=== PATIENT | male | born 1960 | race Caucasian/White ===

== ENCOUNTER → 2025-03-03 | Outpatient (CLI) | payer SELFPAY, OTHER ==
--- NOTE | 2025-03-03 10:36 | EKG12_ITS ---
Test Reason : PREOP Blood Pressure : */* mmHG Vent. Rate : 62 BPM Atrial Rate : 62 BPM P-R Int : 142 ms QRS Dur : 92 ms QT Int : 382 ms P-R-T Axes : 48 18 61 degrees QTcB Int : 387 ms Normal sinus rhythm Normal ECG Confirmed by Elieser Camacho ([id number]), graphic editor JAS LAROSE ([id number]) on 03/04/2025 8:39:24 AM Referred By: Ashwin Mccormick Confirmed By: Elieser Camacho
[2025-03-03 11:51] LABS: Hematocrit 44.5 % (40-54); Hemoglobin 14.4 g/dL (13.0-16.5); Mean Corp Hgb Conc 32.4 g/dL (32-36); Mean Corpuscular Volume 92.1 fL (80-94); Mean Platelet Vol. 9.9 fl (6.2-12.0); Platelet Count 312 K/mm3 (150-450); RBC Distribution Width CV 12.6 % (11.6-14.6); RBC Distribution Width SD 42.8 fl (35.1-43.9); Red Blood Count 4.83 M/mm3 (4.6-6.2); White Blood Count 11.4 K/mm3 (4.4-11.0)
== END | disposition home or self-care (01) ==
PROVIDERS: PCP Family Medicine; Referring Provider Urology; Visit Provider Urology
DX: Z01.810 Encounter for preprocedural cardiovascular examination (principal)
CPT/HCPCS: 36415; 85027; 93005

== ENCOUNTER 2025-03-12 08:13 | Day surgery (SDC) | payer SELFPAY, OTHER ==
[2025-03-12] VITALS (14 sets, daily range): BP systolic 120–160; BP diastolic 80–98; PULSE 74–84; RESP 14–20; TEMP 36.3–37.1; O2SAT 94–98; BMI 23.4; BMI 23.5
--- OUTSIDE RECORDS SUMMARY | 2025-03-12 08:36 | XMS RPT_ITS | CCD ---
Author Organization [facility] Care Team Providers Care Hitcher Name Role Phone Parish Piedra MD Unavailable Parish Piedra MD Unavailable Shiraz OCONNOR, Dr. Abarca Unavailable Avni Walls MD Unavailable Helen PA-C, Romelai Rivera Unavailable Chrissie Ellis Unavailable Unavailable Danis BARBER OR BEAUTY SHOP MANAGER, Catalina Unavailable Unavailable FAMILY AND CONSUMER EDUCATION TEACHER-C, Stu Silva Unavailable Adalid BARBER OR BEAUTY SHOP MANAGER, Luis Unavailable Unavailable Juan Miguel PA-C, Yun Moody Unavailable Leonardo EVIDENCE TECHNICIAN, Saige Unavailable Unavailable Nat BARBER OR BEAUTY SHOP MANAGER, Naye Unavailable Unavailab lukas Caballero LPN, Gail Unavailable Unavailabl kyle Nicole LPN, Christina Church Unavailable Unavaila ble Unavailable Unavailable Rito HASTINGSN, Albertina Unavailable UnavailPARISH Bardales MD Primary Care Physician ARTUR HOBSON Admitting Unavailable ARTUR HOBSON Primary Care Unavailable ARTUR HOBSON Attending Unavailable PARISH PIEDRA Consulting Unavailable PROVIDER, UNKNOWN Consulting Unavailable PROVIDER, UNKNOWN Consulting Unavailable PROVIDER, UNKNOWN Consulting Unavailable ARTUR HOBSON Admitting Unavailable ARTUR HOBSON Primary Care Unavailable ARTUR HOBSON Attending Unavailable PARISH PIEDRA Consulting Unavailable PROVIDER, UNKNOWN Consulting Unavailable PROVIDER, UNKNOWN Consulting Unavailable PROVIDER, UNKNOWN Consulting Unavailable ANGELO ESCOBAR MD Admitting Unavailable ANGELO ESCOBAR MD Primary Care Unavailable ANGELO ESCOBAR MD Attending Unavailable PARISH PIEDRA Consulting Unavailable PROVIDER, UNKNOWN Consulting Unavailable PROVIDER, UNKNOWN Consulting Unavailable PROVIDER, UNKNOWN Consulting Unavailable PARISH PIEDRA MD Primary Care Unavailable PRICILA ESCALANTE MD Attending Unavail able LAURA OCONNOR PARISH Brtiton Primary Care Unavailable BORIS OCONNOR, PRICILA Attending Unavail keith ESCALANTE MD, PRICILA Attending Unavail able LAURA OCONNOR, PARISH Britton Primary Care Unavailable ANGELO ESCOBAR MD Attending Unavailable LAURA OCONNOR, PARISH Britton Primary Care Unavailable LAURA OCONNOR, PARISH Britton Primary Care Unavailable BORIS OCONNOR, PRICILA Attending Unavail keith PIEDRA MD, PARISH Britton Primary Care Unavailable BORIS OCONNOR, PRICILA Attending Unavail able ANGELO ESCOBAR MD Attending Unavailable LAURA OCONNOR, PARISH Britton Primary Care Unavailable Allergies Allergy Classification Reported Allergen(s) Allergy Type Date of Onset Reaction(s) Facility (20 sources) Augmentin *PENICILLINS* [facility], [facility]. Medications Current Medications Medication Drug Class(es) Dates Sig (Normalized) Sig (Original) fenofibrate 160 mg oral tablet (15 sources) Peroxisome Proliferator Receptor alpha Agonist Start: 04-01-2024 fenofibrate 160 mg tablet ; 1 (one) tablet qd for 0 days Quantity: 90 {Tablet} Refills: 3 Ordered: 01-Apr-2024 MD Parish Piedra Start: 01-Apr-2024 Fish Oils (4 sources) Start: 04-23-2024 Fish Oil 1000 mg oral capsule Dose : 1,000 mg = 1 cap(s), Oral, qDay, # 90 cap(s), 0 Refill(s) Start Date: 04/23/24 Status: Ordered Medication Dispense Status: Completed Quantity: 90.0 Unit: cap(s) Total Allowed Fills: 1 Fills Dispensed: 0 Start: 04-23-2024 Fish Oil 1000 mg oral capsule Dose : 1,000 mg = 1 cap(s), Oral, qDay, # 90 cap(s), 0 Refill(s) Start Date: 04/23/24 Status: Ordered Quantity: 90.0 Unit: cap(s) Repeat number: 1 fluconazole 150 mg oral tablet (15 sources) Azole Antifungal Start: 09-26-2023 fluconazole 1 50 mg tablet ; 1 (one) tablet q week x 4 weeks for 0 days Quantity: 4 {Tablet} Refills: 0 Ordered: 26-Sep-2023 MD Parish Piedra Start: 26-Sep-2023 Multi Vitamin Oral Tablet (20 sources) take 1 tablet by mouth once daily Multi Vitamin Oral Tablet ; 1 daily Bertha 3 1200 MG Oral Capsule (20 sources) take 2 capsules by mouth once daily Bertha 3 1200 MG Oral Capsule ; 2 daily (1200 MG) Completed/Discontinued Medications Medication Drug Class(es) Dates Sig (Normalized) Sig (Original) acetaminophen 325 mg / HYDROcodone bitartrate 5 mg oral tablet (20 sources) Opioid Agonist Start: 11-18-2013 End: 05-20-2014 take 2 tablets by mouth every six hours as needed for pain HYDROCODONE-ACETAM INOPHEN, 5-325MG (Oral Tablet) ; 2 (two) Tablet every 6 hours as needed for pain for 0 days Quantity: 90 {Tablet} Refills: 0 Ordered: 20-May-2014 JOHNNY Johns Majo Palencia Start: 18-Nov-2013 End: 20-May-2014 Status: Inactive Comments: Medication taken as needed. Comment on above: Medication taken as needed. [id number] 200 actuat albuterol 0.09 mg/actuat metered dose inhaler (20 sources) beta2-Adrenergic Agonist Start: 11-05-2011 End: 08-01-2013 take 2 puff(s) by inhalation every four hours as needed for cough VENTOLIN HFA, 108 (90 Base)MCG/ACT (Inhalation Aerosol Solution) ; 2 (two) puff(s) every four hours PRN cough or wheeze for 0 days Quantity: 1 {unit(s)} Refills: 0 Ordered: 01-Aug-2013 JOHNNY Caballeronifer Start: 05-Nov-2011 End: 01-Aug-2013 Status: Inactive amoxicillin 875 mg / clavulanate 125 mg oral tablet (20 sources) Penicillin-class Antibacterial Start: 04-08-2021 End: 04-18-2021 take 1 tablet by mouth twice daily at mealtime Amoxicillin-Pot Clavulanate 875-125 MG Oral Tablet ; 1 (one) Tablet BID for 10 days Quantity: 20 {Tablet} Refills: 0 Ordered: 08-Apr-2021 MD Parish Piedra Start: 08-Apr-2021 End: 18-Apr-2021 Status: Inactive Comments: Take with food Comment on above: Take with food aspirin 81 mg delayed release oral tablet (20 sources) Platelet Aggregation Inhibitor, Nonsteroidal Anti-inflammatory Drug take 1 tablet by mouth once daily Aspirin 81 MG Oral Tablet Delayed Release ; 1 daily (81 MG) Status: Inactive azithromycin 500 mg oral tablet (20 sources) Macrolide Antimicrobial Start: 04-12-2021 End: 04-15-2021 take 1 tablet by mouth once daily Azithromycin 500 MG Oral Tablet ; 1 (one) Tablet qd for 3 days Quantity: 3 {Tablet} Refills: 0 Ordered: 12-Apr-2021 MD Parish Piedra Start: 12-Apr-2021 End: 15-Apr-2021 Status: Inactive Start: 11-05-2011 End: 11-08-2011 take 1 tablet by mouth once daily ZITHROMAX TRI-ANT, 500MG (Oral Tablet) ; 1 tablet Tablet daily for 3 days Quantity: 3 {Tablet} Refills: 0 Ordered: 05-Nov-2011 MD Avni Walls Start: 05-Nov-2011 End: 08-Nov-2011 Status: Inactive cephalexin 500 mg oral capsule (20 sources) Cephalosporin Antibacterial Start: 01-06-2020 End: 01-16-2020 take 2 capsules by mouth twice daily Cephalexin 500 MG Oral Capsule ; 2 (two) Capsule bid for 10 days Quantity: 40 {Capsule} Refills: 0 Ordered: 06-Jan-2020 MD Parish Piedra Start: 06-Jan-2020 End: 16-Jan-2020 Status: Inactive ciprofloxacin 500 mg oral tablet (20 sources) Quinolone Antimicrobial Start: 05-13-2021 End: 05-23-2021 take 1 tablet by mouth twice daily Cipro 500 MG Oral Tablet ; 1 (one) Tablet bid for 10 days Quantity: 20 {Tablet} Refills: 0 Ordered: 13-May-2021 MD Parish Piedra Start: 13-May-2021 End: 23-May-2021 Status: Inactive Start: 12-19-2019 End: 12-29-2019 take 1 tablet by mouth twice daily Ciprofloxacin HCl 500 MG Oral Tablet ; 1 (one) Tablet two times daily for 10 days Quantity: 20 {Tablet} Refills: 0 Ordered: 19-Dec-2019 MD Avni Walls Start: 19-Dec-2019 End: 29-Dec-2019 Status: Inactive cyclobenzaprine hydrochloride 10 mg oral tablet (20 sources) Muscle Relaxant Start: 11-18-2013 End: 05-20-2014 take 1 tablet by mouth three times daily as needed CYCLOBENZAPRINE HCL, 10MG (Oral Tablet) ; 1 (one) Tablet Three times a day as needed for 0 days Quantity: 30 {Tablet} Refills: 0 Ordered: 20-May-2014 JOHNNY Johns Majo Palencia Start: 18-Nov-2013 End: 20-May-2014 Status: Inactive Comments: Medication taken as needed. may cause drowsiness Comment on above: Medication taken as needed. may cause drowsiness methylPREDNISolone 4 mg oral tablet (20 sources) Corticosteroid Start: 08-02-2013 End: 08-08-2013 MEDROL (ANT), 4MG (Oral Tablet) ; 1 Tab as directed for 6 days Quantity: 1 {Dose_Pack} Refills: 0 Ordered: 02-Aug-2013 CLIVE Bullard Start: 02-Aug-2013 End: 08-Aug-2013 Status: Inactive metroNIDAZOLE 500 mg oral tablet (20 sources) Nitroimidazole Antimicrobial Start: 05-13-2021 End: 05-23-2021 take 1 tablet by mouth twice daily metroNIDAZOLE 500 MG Oral Tablet ; 1 (one) Tablet bid for 10 days Quantity: 20 {Tablet} Refills: 0 Ordered: 13-May-2021 MD Parish Piedra Start: 13-May-2021 End: 23-May-2021 Status: Inactive Multivitamin Adult Oral Tablet (20 sources) Multivitamin Rommel lt Oral Tablet ; daily Status: Inactive predniSONE 20 mg oral tablet (20 sources) Start: 08-09-2013 End: 11-18-2013 take 3 tablets by mouth once daily, then take 2 tablets by mouth once daily, then take 1 tablet by mouth once daily, then take 0.5 tablet by mouth once daily PREDNISONE, 20MG (Oral Tablet) ; Tablet for 0 days Quantity: 20 {Tablet} Refills: 0 Ordered: 18-Nov-2013 Start: 09-Aug-2013 End: 18-Nov-2013 Status: Inactive Comments: Take 3tabs qd for 3 days thenTake 2tabs qd for 3 days thenTake 1tab qd for 3 days thenTake 1/2tab qd for 4 days. Comment on above: Take 3tabs qd for 3 days thenTake 2tabs qd for 3 days thenTake 1tab qd for 3 days thenTake 1/2tab qd for 4 days. sulfamethoxazole 800 mg / trimethoprim 160 mg oral tablet (20 sources) Dihydrofolate Reductase Inhibitor Antibacterial, Sulfonamide Antimicrobial Start: 10-26-2021 End: 11-09-2021 take 1 tablet by mouth twice daily Bactrim DS 800-160 MG Oral Tablet ; 1 (one) Tablet bid for 14 days Quantity: 28 {Tablet} Refills: 0 Ordered: 26-Oct-2021 MD Parish Piedra Start: 26-Oct-2021 End: 09-Nov-2021 Status: Inactive Problems Active Problems Problem Classification Problem Date Documented Date Episodic/Chronic Abdominal hernia (4 sources) Inguinal hernia 04-11-2024 Episodic Abdominal pain (20 sources) Abdominal pain; Translations: [Unspecified abdominal pain] 09-29-2022 Episodic Acute bronchitis (20 sources) Acute bronchitis 05-13-2021 Episodic Administrative/social admission (20 sources) Issue of repeat prescriptions 05-13-2021 Episodic Cancer of colon (4 sources) Carcinoma of colon, stage I 04-11-2024 Chronic Chronic obstructive pulmonary disease and bronchiectasis (20 sources) Bronchitis; Translations: [Bronchitis, not specified as acute or chronic] 05-13-2021 Episodic Disorders of lipid metabolism (20 sources) Hyperlipidemia; Translations: [Hyperlipidemia, unspecified] 09-29-2022 Chronic Diverticulosis and diverticulitis (20 sources) Diverticulitis; Translations: [Diverticulitis of intestine, part unspecified, without perforation or abscess without bleeding] 05-13-2021 Chronic Genitourinary symptoms and ill-defined conditions (20 sources) Abnormal urine odor; Translations: [Unspecified abnormal findings in urine] 09-23-2021 Episodic Headache; including migraine (20 sources) Headache; Translations: [Headache] 09-29-2022 Episodic Immunizations and screening for infectious disease (20 sources) Requires diphtheria, tetanus and pertussis vaccination; Translations: [Encounter for immunization] 05-13-2021 Episodic Inflammatory conditions of male genital organs (20 sources) Prostatitis; Translations: [Inflammatory disease of prostate, unspecified] 10-26-2021 Episodic Mycoses (20 sources) Dermal mycosis; Translations: [Superficial mycosis, unspecified] 09-26-2023 Episodic Other and unspecified benign neoplasm (20 sources) Tubular adenoma ; Translations: [Benign neoplasm, unspecified site] 09-29-2022 Episodic Other and unspecified benign neoplasm (2 sources) Benign neoplasm of pituitary gland; Translations: [Benign neoplasm of pituitary gland] Onset: 10-28-2024 Episodic Other endocrine disorders (4 sources) Pituitary cyst 04-23-2024 Chronic Other endocrine disorders (2 sources) Testicular hypofunction; Translations: [Testicular hypofunction] Onset: 10-28-2024 Chronic Other injuries and conditions due to external causes (20 sources) At risk for falls ; Translations: [History of falling] 09-26-2023 Episodic Other lower respiratory disease (20 sources) Cough; Translations: [Cough] 05-13-2021 Episodic Other screening for suspected conditions (not mental disorders or infectious disease) (20 sources) Screening status; Translations: [Encounter for screening for diabetes mellitus] 05-13-2021 Episodic Other skin disorders (20 sources) Eruption; Translations: [Rash and other nonspecific skin eruption] 05-13-2021 Episodic Other upper respiratory infections (20 sources) Sinusitis; Translations: [Chronic sinusitis, unspecified] 05-13-2021 Chronic Other upper respiratory infections (20 sources) Upper respiratory infection; Translations: [Acute upper respiratory infection, unspecified] 05-13-2021 Episodic Pneumonia (except that caused by tuberculosis or sexually transmitted disease) (20 sources) Pneumonia; Translations: [Pneumonia, unspecified organism] 04-12-2021 Episodic Residual codes; unclassified (20 sources) Family history of prostate cancer; Translations: [Family history of malignant neoplasm of prostate] 09-29-2022 Episodic Screening and history of mental health and substance abuse codes (20 sources) Patient encounter status; Translations: [Encounter for screening for depression] 09-29-2022 Episodic Spondylosis; intervertebral disc disorders; other back problems (20 sources) Backache with radiation; Translations: [Dorsalgia, unspecified] 11-18-2013 Episodic Unclassified (20 sources) Non-Contributory Problem List/Past Medical History 12-19-2019 Unclassified (20 sources) Well Adult, male - The patient does not feel well (Has occasional llq abdominal pain (feels a lump in that area) with some constipation. Also complains of left hip which radiates into left leg for months with no improvement.), has decreased energy level and is sleeping well. The patient has a balanced diet and takes supplemental vitamins. The patient exercises none (active). The patient sleeps 8 hours per night. 06-28-2022 Unclassified (20 sources) Well Adult, male - The patient feels well with minor complaints (Has daily headaches since Mar 2021. Also feels like there is a lump in left lower abdomen.), has good energy level and is sleeping well. The patient has a balanced diet and takes supplemental vitamins. The patient exercises none (active). The patient sleeps 7 hours per night. Note for Well Adult, male: Lump is not painful. 06-28-2021 Unclassified (20 sources) Well Adult, male - The patient feels well with minor complaints (complains of occasional left side pain for several months.), has decreased energy level and is sleeping well. The patient has a balanced diet and takes supplemental vitamins. The patient exercises none (active). The patient sleeps 7 hours per night. Note for Well Adult, male: reviewed by [facility] 09-23-2020 Unclassified (20 sources) Well Adult, male - The patient feels well with minor complaints (Pt thinks he may have worms. Notices it more at night- he feels a pinching-fine sting. He does not notice anything in stool. Otherwise pt feels pretty good. He does tire more easily but feels that may be caused by getting older. Pt has eaten today.). Patient has not had bone density screening. Patient has not had a cholesterol screening. There has been no glucose screening. Patient has not had a Zostavax vaccine. Patient has not had a Pneumovax vaccine. Patient has not received a recent influenza vaccine. Last Tetanus booster: unknown/unsure. The patient has a balanced diet and takes supplemental vitamins (takes 1 a day vitiamin.). Patient exercises daily (very active lifestyle.). Patient sleeps 7 hours per night. Note for Well Adult, male: reviewed by B 06-24-2011 Past or Other Problems Problem Classification Problem Date Documented Da te Episodic/Chronic Headache; including migraine (20 sources) Headache; including migraine 04-08-2021 Unclassified (20 sources) Abdominal pain - The abdominal pain has been occurring in a persistent pattern for 3 months. The course has been increasing. The pain is described as a moderate dull ache and fullness. The pain is located in the left lower quadrant and radiates to the left flank (C/O H/A). The symptoms have no relieving factors. Note for Abdominal pain: Gets worse w/ BM, states passes mucous w/ BM as well reviewed by [facility] 09-29-2022 Unclassified (20 sources) UTI - Symptoms include urinary frequency. There is no assiciated pain. The pain radiates to the back (VERY LITTLE PAIN). The patient describes the pain as burning. Onset was 2 week(s) ago. There is no known event that preceded symptom onset. The patient describes this as unchanged. Note for UTI: reviewed by [facility] 09-23-2021 Unclassified (20 sources) Abdominal pain - The onset of the abdominal pain has been gradual and has been occurring for 2 months. The pain is located in the left lower quadrant. Note for Abdominal pain: No relationship to meals. No FHx of GI problems. 05-13-2021 Unclassified (20 sources) Cold Symptoms - Symptoms include sneezing, nasal congestion, ear fullness, sore throat, productive cough, fever (Highest 101), chills, general malaise and headache, but do not include runny nose or ear pain. The onset was sudden 5 day(s) ago. The symptoms occur constantly. The patient describes this as moderate in severity and unchanged. Current treatment includes acetaminophen. The patient has not been exposed to an individual with a cough or an individual with an upper respiratory infection. Note for Upper respiratory infection: reviewed by [facility] 01-06-2020 Unclassified (20 sources) UTI - Symptoms include dysuria (burning pain with urination--has gotten worse. Only able to urine a small amount. Having dribbling, hesitancy.), urinary frequency, urinary urgency and dark urine (in the mornings). Onset was 4 day(s) ago. The symptoms occur constantly. The patient describes this as worsening. Associated symptoms do not include fever or nausea. Note for UTI: does have back pain--states that he has back issues and seeing an chiropractor for bulging discsFather in June from Prostate Cancer. He had PSA done earlier this year by Dr. España. Been taking herbs for the past 2 weeks for parasites. 12-19-2019 Unclassified (20 sources) Cold Symptoms - Symptoms include nasal congestion, runny nose, sore throat, hoarseness, chills, general malaise (back hurts - but this has been for awhile), headache and facial pain (teeth ache), but do not include ear pain. The onset was sudden 1 day(s) ago. The symptoms occur constantly. The patient describes this as moderate in severity and worsening. Current treatment includes allergy medications (claritin). The patient has been exposed to an individual with similar symptoms. Medical history includes seasonal allergies, but patient denies history of recurrent sinusitis, recurrent strep pharyngitis, asthma, tonsillectomy or recurrent ear infections. Note for Upper respiratory infection: No vomiting or diarrhea. 02-03-2017 Unclassified (20 sources) Cold Symptoms - Symptoms include sneezing, nasal congestion, runny nose, ear pain (at times of bilateral ears), sore throat, hoarseness, productive cough (yellow sputum), wheezing (shortness of breath), fever, chills (started last night), general malaise (body aches) and headache (on Monday). The onset was 4 day(s) ago. The symptoms occur constantly. The patient describes this as moderate in severity and worsening. Current treatment includes allergy medications (claritin) and NSAIDs (last dose taken last night). Risk factors do not include smoking. The patient has been exposed to an individual with similar symptoms (). Patient denies history of seasonal allergies, recurrent sinusitis, recurrent strep pharyngitis, asthma, tonsillectomy or recurrent ear infections. Note for Upper respiratory infection: Reviewed by JPK. 02-25-2016 Unclassified (20 sources) Cold Symptoms - Symptoms include sneezing, nasal congestion, ear pain (bith ears.), sore throat, productive cough (expectorating yellow phlegm.), chills, general malaise and headache (and body aches.), but do not include fever (and temperature 97.4 in office this morning.) or facial pain. The onset was gradual 5 day(s) ago. The patient describes this as moderate in severity and worsening. Current treatment includes NSAIDs (Ibuprofen.). Risk factors do not include smoking. The patient has been exposed to an individual with similar symptoms ( just startedin yesterday.). Note for Upper respiratory infection: reviewed by [facility] 03-30-2015 Unclassified (20 sources) Cold Symptoms - Symptoms include sneezing, nasal congestion, runny nose, ear fullness, sore throat, hoarseness, productive cough, chills and headache, but do not include fever. The onset was sudden 4 day(s) ago. The symptoms occur constantly. The patient describes this as moderate in severity and worsening. Current treatment includes non-prescription cold medication and NSAIDs. Note for Upper respiratory infection: reviewed by [facility] 05-20-2014 Unclassified (20 sources) Back pain - The onset of the back pain has been acute and has been occurring in a persistent pattern for 11 days. The course has been constant. The pain is characterized as a dull ache and stabbing. The pain is located in the lower back and radiates to the lateral aspect of left leg and left thigh. The pain is precipitated by heavy weight lifting (carried his father ). The symptoms have no aggravating factors and have no relieving factors. There has been no associated history of back surgery. Note for Back pain: started process with chiropractor - xrays and MRI show old fracture, ruptured disc, and a bulging disc....has consult with [facility] set up for Setp 15....however pain is too great to wait that long without help.... 11-18-2013 Unclassified (20 sources) Persistent Rash - Pt here because he saw Yun on 08/01/13 for rash. Rash is from neck and chest on down to lower extremities. Fine red raised and very itchy. Labs done which showed elevated Eosinophils of 1060. No sign of viral or bactrerial infection. Pt was put on Medrol Dose pack on 08/02/13 and has 3 more days of this but it has not helped very much. It has only taken the edge off. Had tried some Claritin and Benadryl one time but no relief. Pt has not been running fever, no joint aches. Rash starteed on 07/29/13. Had upset stomache and headache on 07/31/13 and that lasted only one day. Has had none of these symptoms since then. Here for re-evaluation. reviewed by B 08-05-2013 Unclassified (20 sources) Rash - The onset of the rash has been acute and has been occurring in a persistent pattern for days (4). The course has been constant. The rash is characterized as red and raised above the skin. The rash was first seen on the groin. It spread to the trunk and the lower extremity. There has been associated itching (and kind of larson too) and erythema. There has been no associated fever. Note for Rash: No recent URI symptoms - even 2-3 weeks ago. No fever, chills, body aches, or joint pain. No ill contacts, especially with a rash. No exposure to anything new other than ivory soap but used that for the first time last week. Ate cashews on Monday which he has bad before but thought they tasted funny - no trouble swallowing or lesions around the mouth. Has used caladryl which helped with the itching. The rash continues to spread. 08-01-2013 Unclassified (20 sources) Cough - The onset of the cough has been sudden and has been occurring in a persistent pattern for 2 weeks. The course has been increasing. The cough is characterized as dry. There is no sputum production. The cough occurs mainly at night. The cough is aggravated by exercise, exposure to dust, exposure to pollens and a particular position. Associated symptoms include dyspnea, hoarseness, nasal congestion, nasal discharge/stuffy nose, runny nose and wheezing. 11-05-2011 Unclassified (15 sources) Well Adult, male - The patient feels well with minor complaints (Has a burning pain from both thighs to groin for the past 6 months without change.), has good energy level and is sleeping well. The patient has a balanced diet and takes supplemental vitamins. The patient does not exercise. The patient sleeps 8 hours per night. Note for Well Adult, male: Burning feeling is constant. No triggers. He does report some rash in groin. 09-26-2023 Results Test Name Value Interpretation Reference Range Facility TFTESTon 11-03-2024 Free Testost Direct 1.6 pg/mL Low 6.6-18.1 [facility] MAIN Comment on above: Result Comment: Perf ormed At: [facility] [address] [id number] Alvarez Hahn MD Ph:[phone] Performed At: [facility] [address] [place], [place] [id number] Irene Aaron PhD Ph:[phone] Performed By: #### F T4, 251469, LH, GFR, CMP, PROL, FSH #### [address] [address] Testosterone Lvl 183 ng/dL Low 264-916 [facility] MAIN Comment on above: Result Comment: Adul t male reference interval is based on a population of healthy nonobese males (BMI <30) between 19 and 39 years old. lyric Vega.al. JCEM 2017,102;6011-1146. PMID: [id number]. Performed By: #### F T4, 765332, LH, GFR, CMP, PROL, FSH #### [address] [address] .GFRon 10-28-2024 Estimated Glomerular Filtration Rate 81 ml/min/1.73sqm Normal [facility] MA[facility] Comment on above: Result Comment: Stages of Chronic Kidney Disease (CKD) Stage Description eGFR(ml/min/1.73 sq.m.) CKD 1 Normal kidney function or >=90 normal kindney function with possible kidney damage (ex. Proteinuria) CKD 2 Kidney damage with mild loss 60-89 of kidney function CKD 3a Mild to moderate loss of kidney 45-59 function CKD 3b Moderate to severe loss of 30-44 of kindey function CKD 4 Severe loss of kidney function 15-29 CKD 5 Kidney failure <15 Note: (go live 2024) the eGFR calculation was updated to the 2020 CKD-EPI creatinine equation without a race factor to calculate the eGFR results. Performed By: #### F T4, 338775, LH, GFR, CMP, PROL, FSH #### [place] [id number] CMPon 10-28-2024 Albumin Level 4.3 G/dL Normal 3.2-4.8 [facility] MAIN Comment on above: Performed By: #### F T4, 346076, LH, GFR, CMP, PROL, FSH #### [place] [id number] Albumin/Globulin [Mass ratio] 1.2 {ratio} Normal 0.9-1.6 [facility] MA[facility] Comment on above: Performed By: #### F T4, 205022, LH, GFR, CMP, PROL, FSH #### [address] [address] ALP [Catalytic activity/Vol] 73 U/L Normal 38-126 [facility] MA[facility] Comment on above: Performed By: #### F T4, 912460, LH, GFR, CMP, PROL, FSH #### [address] [address] ALT [Catalytic activity/Vol] 23 U/L Normal 12-55 [facility] MA[facility] Comment on above: Performed By: #### F T4, 727389, LH, GFR, CMP, PROL, FSH #### [place] [id number] AST [Catalytic activity/Vol] 23 U/L Normal 8-34 [facility] Comment on above: Performed By: #### F T4, 362416, LH, GFR, CMP, PROL, FSH #### [place] [address] Bili Total 0.30 mg/dL Normal 0.20-1.20 [facility] MA[facility] Comment on above: Result Comment: Use of this assay is not recommended for patients undergoing treatment with eltrombopag due to the potential for falsely elevated results. Performed By: #### F T4, 982883, LH, GFR, CMP, PROL, FSH #### [place] [address] BUN/Creatinine Ratio 12.6 ratio Normal 10.0-22.0 [facility] MAIN Comment on above: Performed By: #### F T4, 540095, LH, GFR, CMP, PROL, FSH #### [place] [id number] Calcium [Mass/Vol] 10.1 mg/dL Normal 8.7-10.4 [facility] MAIN Comment on above: Performed By: #### F T4, 417916, LH, GFR, CMP, PROL, FSH #### [place] 6695510 Chloride [Moles/Vol] 106 mmol/L Normal 98-110 [facility] MAIN Comment on above: Performed By: #### F T4, 951557, LH, GFR, CMP, PROL, FSH #### [place] 6695510 CO2 [Moles/Vol] 29 mmol/L Normal 22-32 [facility] Comment on above: Performed By: #### F T4, 635565, LH, GFR, CMP, PROL, FSH #### [address] [address] Creatinine [Mass/Vol] 1.03 mg/dL Normal 0.60-1.40 [facility] Comment on above: Result Comment: Test ing performed on Appstarter analyzer using enzymatic creatinine methodology. Performed By: #### F T4, 324307, LH, GFR, CMP, PROL, FSH #### [address] [address] Electrolyte Balance 8.0 mEq/L Normal 4.0-15.0 [facility] MA[facility] Comment on above: Performed By: #### F T4, 203654, LH, GFR, CMP, PROL, FSH #### [place] [id number] Globulin 3.5 G/dL Normal 2.5-4.2 [facility] Comment on above: Performed By: #### F T4, 868646, LH, GFR, CMP, PROL, FSH #### [place] [id number] Glucose [Mass/Vol] 101 mg/dL Normal 82-115 [facility] MAIN Comment on above: Performed By: #### F T4, 794681, LH, GFR, CMP, PROL, FSH #### [address] [address] Potassium [Moles/Vol] 4.4 mmol/L Normal 3.5-5.0 [facility] Comment on above: Performed By: #### F T4, 079042, LH, GFR, CMP, PROL, FSH #### [address] [address] Sodium [Moles/Vol] 143 mmol/L Normal 136-145 [facility] MAIN Comment on above: Performed By: #### F T4, 809195, LH, GFR, CMP, PROL, FSH #### [place] [id number] Total Protein 7.8 G/dL Normal 5.7-8.2 [facility] Comment on above: Performed By: #### F T4, 255302, LH, GFR, CMP, PROL, FSH #### [place] [address] Urea nitrogen [Mass/Vol] 13.0 mg/dL Normal 8.0-22.0 [facility] MA[facility] Comment on above: Performed By: #### F T4, 781535, LH, GFR, CMP, PROL, FSH #### [place] [address] FSHon 10-28-2024 FSH 4.0 mIU/mL Normal 1.4-18.1 [facility] MA[facility] Comment on above: Result Comment: Adul t Female FSH Reference Ranges (02/17/99): Follicular phase 2.5 - 10.2 mIU/mL Midcycle phase 3.4 - 33.4 mIU/mL Luteal phase 1.5 - 9.1 mIU/mL Post menopausal 23.0 -116.3 mIU/mL Adult Male: 1.4 - 18.1 mIU/mL Performed By: #### F T4, 918838, LH, GFR, CMP, PROL, FSH #### [place] [address] FT4on 10-28-2024 Free T4 [Mass/Vol] 0.99 ng/dL Normal 0.89-1.76 [facility] MAIN Comment on above: Result Comment: No te - New Reference Range in effect 19 Performed By: #### F T4, 788761, LH, GFR, CMP, PROL, FSH #### [place] [address] LHon 10-28-2024 LH 1.5 mIU/mL Normal 1.5-9.3 [facility] MA[facility] Comment on above: Result Comment: No te - New Reference Range in effect 19 Adult Female LH Reference Ranges: Follicular phase 1.9 - 12.5 mIU/mL Midcycle phase 8.7 - 76.3 mIU/mL Luteal phase 0.5 - 16.9 mIU/mL Post menopausal 5.0 - 55.2 mIU/mL Performed By: #### F T4, 774191, LH, GFR, CMP, PROL, FSH #### [facility] [address] [place] [address] PROLon 10-28-2024 Prolactin 3.3 ng/mL Normal 2.0-18.0 [facility] MA[facility] Comment on above: Performed By: #### F T4, 794772, LH, GFR, CMP, PROL, FSH #### [facility] [address] [place] [address] MRI BRAIN W/ + W/O CONTRASTo n 10-21-2024 MRI BRAIN W/ + W/O CONTRAST ORIGINAL EXAMINATION: MRI OF THE BRAIN WITHOUT AND WITH CONTRAST 10/21/2024 1:22 pm TECHNIQUE: Multiplanar multisequence MRI of the head/brain was performed without and with the administration of intravenous contrast. COMPARISON: None. HISTORY: ORDERING SYSTEM PROVIDED HISTORY: Reason for Exam: pituitary cyst FINDINGS: INTRACRANIAL STRUCTURES/VENTRICLES: There is a 14 mm x 14 mm x 19 mm (AP by craniocaudal by transverse) cystic lesion within the pituitary gland. Superiorly it contacts the optic chiasm. The infundibulum is displaced slightly posteriorly. Laterally it contacts the cavernous carotid arteries. Posteriorly no significant effacement of the prepontine cistern is present. No internal detail is demonstrated. M rim of pituitary tissue is present anterior to the structure. There is no acute infarct. No mass effect or midline shift. No evidence of an acute intracranial hemorrhage. The ventricles and sulci are normal in size and configuration. The normal signal voids within the major intracranial vessels appear maintained. No abnormal focus of enhancement is seen within the brain. ORBITS: The visualized portion of the orbits demonstrate no acute abnormality. SINUSES: The visualized paranasal sinuses and mastoid air cells are well aerated. BONES/SOFT TISSUES: The bone marrow signal intensity appears normal. The soft tissues demonstrate no acute abnormality. IMPRESSION: 19 mm cystic lesion of the pituitary. 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 Recommend comparison with previous studies. No acute findings in the brain. Interpreted by: Enrrique Bush Preliminary Report By: Enrrique Bush Electronically signed By Enrrique Bush Dictated Date: 10/21/2024 1:29:59 PM Prelim Date: 10/21/2024 1:35:43 PM Sign Date: 10/21/2024 1:35:43 PM Ordering Provider: PRICILA ESCALANTE Normal [facility] TESTOSTERONE, TOTAL & FREE, SERUM [CCL]on 08-01-2024 TESTOSTERONE, TOTAL & FREE, SERUM [CCL] Normal [facility] Comment on above: Result Comment: _TES TOSTERONE, TOTAL AND FREE, SERUM_ SEE SCANNED REPORT Performed By: #### 2 81993 #### [facility],[address] [place] [address] PROLACTIN [CCL]on 07-09-2024 Prolactin 7.8 ng/mL Normal 4.1-25.1 [facility] Comment on above: Result Comment: Prol actin test is performed using the [employer] Electrochemiluminescence Immunoassay method. Results obtained with different methods or kits cannot be used interchangeably. [place] [id number] Phillip Diaz III, M.D. [id number] Performed By: #### 2 53464 #### [address] [address] T4, FREE [CCL]on 07-09-2024 Free T4 [Mass/Vol] 1.1 ng/dL Normal 0.9-1.7 [facility] Comment on above: Result Comment: [address] [address] Phillip Diaz III, M.D. [id number] Performed By: #### 2 75524 #### [address] [address] CMP with eGFRon 07-08-2024 AGE 64 years Normal [facility] Comment on above: Performed By: #### 2 45568 #### [address] [address] Albumin [Mass/Vol] 3.9 g/dL Normal 3.4 - 5.0 [facility] Comment on above: Performed By: #### 2 32403 #### [address] [place] [address] Albumin/Globulin [Mass ratio] 1.0 {ratio} Normal 0.9 - 1.6 [facility] Comment on above: Performed By: #### 2 56816 #### [facility],[address] [place] [address] ALK PHOS 40 U/L Low 46 - 116 [facility] Comment on above: Performed By: #### 2 59251 #### [facility],[address] [place] [address] ALT [Catalytic activity/Vol] 43 U/L Normal 16 - 63 [facility] Comment on above: Performed By: #### 2 26630 #### [facility],[address] [place] [address] Anion gap [Moles/Vol] 13 mmol/L Normal 10 - 20 [facility] Comment on above: Performed By: #### 2 26549 #### [facility],[address] [place] [address] AST [Catalytic activity/Vol] 26 U/L Normal 15 - 37 [facility] Comment on above: Performed By: #### 2 03904 #### [facility],[address] [place] [address] B/C RATIO 15 ratio Normal 0 - 30 [facility] Comment on above: Performed By: #### 2 30965 #### [facility],[address] [place] [address] Bilirubin [Mass/Vol] 0.3 mg/dL Normal 0.2 - 1.0 [facility] Comment on above: Performed By: #### 2 45699 #### [facility],[address] [place] [address] Calcium [Mass/Vol] 9.2 mg/dL Normal 8.5 - 10.1 [facility] Comment on above: Performed By: #### 2 93043 #### [facility],[address] [place], [place] [address] Chloride [Moles/Vol] 108 mmol/L High 98 - 107 [facility] Comment on above: Performed By: #### 2 69500 #### [facility],[address] [place] [address] CMP with eGFR Normal [facility] Comment on above: Result Comment: COMP REHENSIVE METABOLIC PANEL Performed By: #### 2 53005 #### [facility],[address] [place], [place] [address] CO2 [Moles/Vol] 29.0 mmol/L Normal 21.0 - 32.0 [facility] Comment on above: Performed By: #### 2 03572 #### [facility],[address] [place] [address] Creatinine [Mass/Vol] 1.14 mg/dL Normal 0.70 - 1.30 [facility] Comment on above: Performed By: #### 2 73436 #### [facility],[address] [place] [address] GFR/1.73 sq M.predicted among non-blacks MDRD (S/P/Bld) [Vol rate/Area] mL/min/{1.73_m2} Normal 60 - 999 [facility] Comment on above: Performed By: #### 2 78218 #### [facility],[address] [place] [address] Result Comment: ACCO RDING TO THE NATIONAL KIDNEY DISEASE EDUCATION PROGRAM(NKDE), A NORMAL eGFR IS A VALUE GREATER THAN OR EQUAL TO 60 ML/MIN/1.73 SQ METERS. CHRONIC KIDNEY DISEASE: <60mL/MIN/1.73 SQ METERS KIDNEY FAILURE: <15mL/MIN/1.73 SQ METERS THIS TEST SHOULD ONLY BE USED FOR PATIENTS 18 YEARS OF AGE AND OLDER. Globulin (S) [Mass/Vol] 3.8 g/dL Normal 1.5 - 3.8 [facility] Comment on above: Performed By: #### 2 78163 #### [facility],[address] [place] [address] Glucose [Mass/Vol] 105 mg/dL Normal 74 - 106 [facility] Comment on above: Performed By: #### 2 65830 #### [facility],[address] [place] [address] Potassium [Moles/Vol] 4.3 mmol/L Normal 3.5 - 5.1 [facility] Comment on above: Performed By: #### 2 50412 #### [facility],[address] [place] [address] Protein [Mass/Vol] 7.7 g/dL Normal 6.4 - 8.2 [facility] Comment on above: Performed By: #### 2 61246 #### [facility],[address] [place] [address] Sodium [Moles/Vol] 146 mmol/L High 136 - 145 [facility] Comment on above: Performed By: #### 2 25051 #### [facility],[address] [place] [address] Urea nitrogen [Mass/Vol] 17 mg/dL Normal 7 - 18 [facility] Comment on above: Performed By: #### 2 30996 #### [facility],[address] [place] [address] TFTESTon 06-12-2024 Free Testost Direct 2.7 pg/mL Low 6.6-18.1 [facility] MAIN Comment on above: Result Comment: Perf ormed At: [facility] [place] [address] [place], [place] [id number] Alvarez Hahn MD Ph:[phone] Performed At: [facility] [place] [address] [place], [place] [id number] Irene Aaron PhD Ph:[phone] Performed By: #### 1 58324 #### [facility] [address] [place] [address] Testosterone Lvl 250 ng/dL Low 264-916 [facility] MAIN Comment on above: Result Comment: Adul t male reference interval is based on a population of healthy nonobese males (BMI <30) between 19 and 39 years old. Gary et.al. JCEM 2017,102;9650-8618. PMID: [id number]. Performed By: #### 1 44045 #### [facility] [address] [place] [address] [facility] 05-21-2024 Order Number [id number] [facility] Comment on above: Performed By: #### 9 [address]33 #### [address] [address] LC Test Name prolactin,pitutary macroa Normal [facility] Comment on above: Performed By: #### 9 [address] #### [place] [address] [place], [place] [address] [facility] 05-20-2024 [facility] Test Result COMMENT Normal [facility] Comment on above: Result Comment: Test Ordered: [id number] Prolactin, Macroadenoma Prolactin 30.6 [H ] ng/mL Reference Range: 3.6-25.2 Prolactin on 1:100 Dilution 30.8 ng/mL Reference Range: Not Estab. Testing on a 100-fold dilution produced a result that is comparable to the result produced on direct testing of the sample. This is consistent with the absence of high-dose hook effect. Total prolactin was measured using the [employer] e-801 immunoassay analyzer. Performed At: [address] [id number] Irene Aaron PhD Ph:[phone] Performed At: [address] [id number] Alvarez Hahn MD Ph:[phone] Performed By: #### 9 67646 #### [id number] [place] [address] 05-18-2024 IGF I 97 ng/mL Normal 64-240 [facility] Comment on above: Result Comment: Perf ormed At: [address] [id number] Alvarez Hahn MD Ph:[phone] Performed By: #### 0 71089 #### [address] [address] [id number] 05-16-2024 ACTH 40.8 pg/mL Normal 7.2-63.3 [facility] Comment on above: Result Comment: ACTH reference interval for samples collected between 7 and 10 AM. Performed At: [facility] [id number] Irene Aaron PhD Ph:[phone] Performed By: #### P ROL, FSH, LH, JUAN CARLOS #### [place] [address] #### FT4, TSH, 807658 #### [address] [address] CORTon 05-15-2024 Cortisol Level 17.2 mcg/dL Normal [facility] Comment on above: Order Comment: Must be drawn before 8am Result Comment: Juan Carlos isol AM Reference Range 6.5-26.0 mcg/dL Cortisol PM Reference Range 3.5-15.0 mcg/dL Performed By: #### P ROL, FSH, LH, JUAN CARLOS #### [place] [address] #### FT4, TSH, 124473 #### [address] [address] FSHon 05-15-2024 FSH 4.8 mIU/mL Normal 1.4-18.1 [facility] Comment on above: Result Comment: Adul t Female FSH Reference Ranges (02/17/99): Follicular phase 2.5 - 10.2 mIU/mL Midcycle phase 3.4 - 33.4 mIU/mL Luteal phase 1.5 - 9.1 mIU/mL Post menopausal 23.0 -116.3 mIU/mL Adult Male: 1.4 - 18.1 mIU/mL Performed By: #### P ROL, FSH, LH, JUAN CARLOS #### [place] [address] #### FT4, TSH, 201183 #### [address] [address] FT4on 05-15-2024 Free T4 [Mass/Vol] 0.63 ng/dL Low 0.76-1.46 [facility] Comment on above: Performed By: #### P ROL, FSH, LH, JUAN CARLOS #### [facility] [address] [place] [address] #### FT4, TSH, 811672 #### [facility] [address] [place], [place] [address] LABORATORYOrdered By: SYSTEM SYSTEM on 05-15-2024 Cortisol [Mass/Vol] 17.2 ug/dL Invalid Interpretation Code ADM Comment on above: Interpretive Data: C ortisol AM Reference Range 6.5-26.0 mcg/dL Cortisol PM Reference Range 3.5-15.0 mcg/dL Follitropin Qn 4.8 m[IU]/mL Normal 1.4 - 18.1 mIU/mL ADM Comment on above: Interpretive Data: A dult Female FSH Reference Ranges (02/17/99): Follicular phase 2.5 - 10.2 mIU/mL Midcycle phase 3.4 - 33.4 mIU/mL Luteal phase 1.5 - 9.1 mIU/mL Post menopausal 23.0 -116.3 mIU/mL Adult Male: 1.4 - 18.1 mIU/mL Free T4 [Mass/Vol] 0.63 ng/dL Low 0.76 - 1. 46 ng/dL AO ADM SS Lutropin Qn 2.5 m[IU]/mL Normal 1.5 - 9.3 mIU/mL ADM Comment on above: Interpretive Data: * *Note - New Reference Range in effect 19Adult Female LH Reference Ranges: Follicular phase 1.9 - 12.5 mIU/mL Midcycle phase 8.7 - 76.3 mIU/mL Luteal phase 0.5 - 16.9 mIU/mL Post menopausal 5.0 - 55.2 mIU/mL Prolactin [Mass/Vol] 22.8 ng/mL High 2.0 - 1 8.0 ng/mL ADM TSH Qn 0.97 m[IU]/L Normal 0.36 - 3.74 mcIU/mL AO ADM SS LHon 05-15-2024 LH 2.5 mIU/mL Normal 1.5-9.3 [facility] Comment on above: Result Comment: No te - New Reference Range in effect 19Adult Female LH Reference Ranges: Follicular phase 1.9 - 12.5 mIU/mL Midcycle phase 8.7 - 76.3 mIU/mL Luteal phase 0.5 - 16.9 mIU/mL Post menopausal 5.0 - 55.2 mIU/mL Performed By: #### P ROL, FSH, LH, JUAN CARLOS #### [place] [address] #### FT4, TSH, 401798 #### [address] [address] PROLon 05-15-2024 Prolactin 22.8 ng/mL High 2.0-18.0 [facility] Comment on above: Performed By: #### P ROL, FSH, LH, JUAN CARLOS #### [place] [address] #### FT4, TSH, 505853 #### [address] [address] TSHon 05-15-2024 TSH Qn 0.97 m[IU]/L Normal 0.36-3.74 [facility] Comment on above: Performed By: #### P ROL, FSH, LH, JUAN CARLOS #### [place] [address] #### FT4, TSH, 654722 #### [address] [address] MR MRI BRAIN W/O CONTRASTon 04-02-2024 MR MRI BRAIN W/O CONTRAST [place] [address] Patient: MANDEEP JUAREZ Phone#: : [phone] Age: 63 Gender: M Pt. Type: Out Account: [id number] Location: Ordering: ARTUR HOBSON Exam Date: 04/02/2024/8:17 Family Phys: PARISH PIEDRA Charge Code: [id number] Physician: [place] Order #: [id number] Dose#: PROCEDURE: MRI BRAIN WITHOUT CONTRAST COMPARISON: [facility], MR, BRAIN W/O CON, 01/24/2023, 8:01. INDICATIONS: Headache TECHNIQUE: A variety of imaging planes and parameters were utilized for visualization of suspected pathology. Images were performed without contrast. Patient refused contrast. FINDINGS: Study limited by the absence of intravenous contrast PITUITARY: In the sella turcica there is a homogeneous T2 hyperintense and T1 isointense lesion measuring 1.2 x 1.2 x 1.8 cm. Previously the lesion measured 1.1 x 1.1 x 1.6 cm. Lesion is FLAIR signal hyperintense. There is thin septation at the inferior margin of the lesion, series 7, image 7. No debris or layering within the fluid. No intracystic nodule identified. The lesion does not contact the optic chiasm. Anterior and left margin of the lesion there is rim thickening versus displaced pituitary, series 6, image 6 and series 3 image. Posterior pituitary bright spot is displaced superiorly. CEREBRUM: Limited visualization demonstrates no midline shift. CEREBELLUM: Limited visualization demonstrates no midline shift. BRAINSTEM: Limited visualization is unremarkable CSF SPACES: Limited visualization demonstrates no hydrocephalus SINUSES: Limited visualization demonstrates mucosal thickening in the ethmoid air cells and maxillary sinuses ORBITS: Limited views are unremarkable. OTHER: Negative. CONCLUSION: 1. Cystic lesion in the sella turcica distorting or replacing the pituitary. Differential includes Rathke's cleft cyst versus cystic pituitary adenoma Dictated by: Batool Bowden MD on 04/03/2024 at 15:18 Approved by: Batool Bowden MD on 04/08/2024 at 20:16 Normal [facility] LIPID PANEL, STANDARDon - Cholesterol [Mass/Vol] 282 mg/dL High <200 [facility] Comment on above: Performed By: #### 5 381, 5004 #### [facility] [address], [address] [place] [phone] Tail Dogger: Jacques Thurston MD Cholesterol in HDL [Mass/Vol] 48 mg/dL Normal > OR = 40 [facility] Comment on above: Performed By: #### 5 741, 0865 #### [facility] [place] [address], [address] [place] [address] Tail Dogger: Jacques Thurston MD Cholesterol in LDL [Mass/Vol] 204 mg/dL High [facility] Comment on above: Result Comment: LDL- C levels > or = 190 mg/dL may indicate familial hypercholesterolemia (FH). Clinical assessment and measurement of blood lipid levels should be considered for all first degree relatives of patients with an FH diagnosis. LDL Cholesterol (LDL-C) levels > or = 300 mg/dL may indicate homozygous familial hypercholesterolemia (HoFH). Untreated, these extremely high LDL-C levels can result in premature CV events and mortality. Patients should be identified early and provided appropriate interventions to reduce the cumulative LDL-C burden from . For questions about testing for familial hypercholesterolemia, please call [facility] at [email or web address]. David Hernandez, et al. J National Lipid Association Recommendations for Patient-Centered Management of Dyslipidemia: Part 1 Journal of Clinical Lipidology 2015;9(2), 129-169. Gurmeet Ospina et al. (2014). Homozygous familial hypercholesterolaemia: new insights and guidance for clinicians to improve detection and clinical management. Heart Journal, 35(32), 3478-0152. Reference range: <100 Desirable range <100 mg/dL for primary prevention; <70 mg/dL for patients with CHD or diabetic patients with > or = 2 CHD risk factors. LDL-C is now calculated using the Nirav-Sheela calculation, which is a validated novel method providing better accuracy than the Friedewald equation in the estimation of LDL-C. Nirav SS et al. ELBERT. 2013;310(19): 8231-5573 (http://education.Amakem.Jigsee/faq/VEW324) Performed By: #### 5 , 3734 #### [facility] [address] , [address] [place] [address] Tail Dogger: Jacques Thurston MD Cholesterol.total/Ch olesterol in HDL [Mass ratio] 5.9 {ratio} High <5.0 [facility] Comment on above: Performed By: #### 5 570, 8224 #### [facility] [facility] [address] , [address] [place] [address] Tail Dogger: Jacques Thurston MD NON HDL CHOLESTEROL 234 mg/dL (calc) High <130 [facility] Comment on above: Result Comment: Non- HDL level > or = 220 is very high and may indicate genetic familial hypercholesterolemia (FH). Clinical assessment and measurement of blood lipid levels should be considered for all first-degree relatives of patients with an FH diagnosis. For patients with diabetes plus 1 major ASCVD risk factor, treating to a non-HDL-C goal of <100 mg/dL (LDL-C of <70 mg/dL) is considered a therapeutic option. Performed By: #### 5 363, 7600 #### [facility] [address], [address] [place] [address] Tail Dogger: Jacques Thurston MD Triglyceride [Mass/Vol] 146 mg/dL Normal <150 [facility] Comment on above: Performed By: #### 5 363, 7600 #### [facility] [address], [address] [place] [address] Tail Dogger: Jacques Thurston MD PSA, TOTALon 03-27-2024 PSA, TOTAL 3.73 ng/mL Normal < OR = 4.00 [facility] Comment on above: Result Comment: The total PSA value from this assay system is standardized against the WHO standard. The test result will be approximately 20% lower when compared to the equimolar-standardized total PSA (Nena Brennon). Comparison of serial PSA results should be interpreted with this fact in mind. This test was performed using the Siemens chemiluminescent method. Values obtained from different assay methods cannot be used interchangeably. PSA levels, regardless of value, should not be interpreted as absolute evidence of the presence or absence of disease. Performed By: #### 5 363, 7600 #### [facility] [address], [address] [place] [address] Tail Dogger: Jacques Thurston MD Laboratory - Chemistry and C hemistry - challengeon 03-26-2024 Cholesterol [Mass/Vol] 282 mg/dL Abnormal [facility] Cholesterol in HDL [Mass/Vol] 48 mg/dL Normal [facility] Cholesterol in LDL [Mass/Vol] 204 mg/dL Abnormal [facility].; [facility], [facility]. Triglyceride [Mass/Vol] 146 mg/dL Normal [facility], [facility].; [facility], [facility]. No Panel Informationon 03-26 CHOL/HDLC RATIO 5.9 Abnormal [facility], [facility].; [facility], Inc NON HDL CHOLESTEROL 234 Abnormal [facility].; [facility], [facility] PSA, TOTAL 3.73 ng/mL Normal [facility]; [facility], [facility]. CREATININEon 03-01-2024 Creatinine [Mass/Vol] 1.14 mg/dL Normal 0.70 - 1.30 [facility] Comment on above: Performed By: #### 2 [id number] #### [facility],[address] [place] [address] COMPREHENSIVE METABOLIC PANE [facility] 09-19-2023 Albumin [Mass/Vol] 4.6 g/dL Normal 3.6-5.1 [facility] Comment on above: Performed By: #### 7 600, 5363, 94219 #### [facility] [place] [address] Tail Dogger: Jacques Thurston MD Albumin/Globulin [Mass ratio] 1.6 {ratio} Normal 1.0-2.5 [facility] Comment on above: Performed By: #### 7 600, 5363, 00434 #### [facility] [place] [address] Tail Dogger: Jacques Thurston MD ALP [Catalytic activity/Vol] 62 U/L Normal 35-144 [facility] Comment on above: Performed By: #### 7 600, 5363, 51450 #### [facility] [place] [address] Tail Dogger: Jacques Thurston MD ALT [Catalytic activity/Vol] 20 U/L Normal 9-46 [facility] Comment on above: Performed By: #### 7 600, 5363, 91388 #### [facility] [address] [place] [address] Tail Dogger: Jacques Thurston MD AST [Catalytic activity/Vol] 20 U/L Normal 10-35 [facility] Comment on above: Performed By: #### 7 600, 5363, 39971 #### [facility] of [address], [address] [place] [address] Tail Dogger: Jacques Thurston MD Bilirubin [Mass/Vol] 0.4 mg/dL Normal 0.2-1.2 [facility] Comment on above: Performed By: #### 7 600, 5363, 06110 #### [facility] of [address], [address] [place] [address] Tail Dogger: Jacques Thurston MD BUN/CREATININE RATIO SEE NOTE: Normal 6-22 [facility] Comment on above: Result Comment: Not Reported: BUN and Creatinine are within reference range. Performed By: #### 7 600, 5363, 78742 #### [facility] of [address], [address] [place] [address] Tail Dogger: Jacques Thurston MD Calcium [Mass/Vol] 9.3 mg/dL Normal 8.6-10.3 [facility] Comment on above: Performed By: #### 7 600, 5363, 32779 #### [facility] of [place] [address] Tail Dogger: Jacques Thurston MD Chloride [Moles/Vol] 104 mmol/L Normal 98-110 [facility] Comment on above: Performed By: #### 7 600, 5363, 66336 #### [facility] of [place] [address] Tail Dogger: Jacques Thurston MD CO2 [Moles/Vol] 28 mmol/L Normal 20-32 [facility] Comment on above: Performed By: #### 7 600, 5363, 84101 #### [facility] of [place] [address] Tail Dogger: Jacques Thurston MD Creatinine [Mass/Vol] 0.99 mg/dL Normal 0.70-1.35 [facility] Comment on above: Performed By: #### 7 600, 5363, 03589 #### [facility] [place] [address] Tail Dogger: Jacques Thurston MD GFR/1.73 sq M.predicted among non-blacks MDRD (S/P/Bld) [Vol rate/Area] 85 mL/min/{1.73_m2} Normal > OR = 60 [facility] Comment on above: Performed By: #### 7 600, 5363, 24153 #### [facility] [place] [address] Tail Dogger: Jacques Thurston MD Globulin (S) [Mass/Vol] 2.9 g/dL Normal 1.9-3.7 [facility] Comment on above: Performed By: #### 7 600, 5363, 90324 #### [facility] [place] [address] Tail Dogger: Jacques Thurston MD Glucose [Mass/Vol] 102 mg/dL High 65-99 [facility] Comment on above: Result Comment: Fasting reference interval For someone without known diabetes, a glucose value between 100 and 125 mg/dL is consistent with prediabetes and should be confirmed with a follow-up test. Performed By: #### 7 600, 5363, 23205 #### [facility] [place] [address] Tail Dogger: Jacques Thurston MD Potassium [Moles/Vol] 4.1 mmol/L Normal 3.5-5.3 [facility] Comment on above: Performed By: #### 7 600, 5363, 47179 #### [facility] [place] [address] Tail Dogger: Jacques Thurston MD Protein [Mass/Vol] 7.5 g/dL Normal 6.1-8.1 [facility] Comment on above: Performed By: #### 7 600, 5363, 57312 #### [facility] [address] [place] [address] Tail Dogger: Jacques Thurston MD Sodium [Moles/Vol] 141 mmol/L Normal 135-146 [facility] Comment on above: Performed By: #### 7 600, 5363, 08537 #### [facility] [place] [address] Tail Dogger: Jacques Thurston MD Urea nitrogen [Mass/Vol] 15 mg/dL Normal 7-25 [facility] Comment on above: Performed By: #### 7 600, 5363, 40859 #### [facility] of [place] [address] Tail Dogger: Jacques Thurston MD LIPID PANEL, [facility] 08-26 Cholesterol [Mass/Vol] 291 mg/dL High <200 [facility] Comment on above: Performed By: #### 7 600, 5363, 52781 #### [facility] of [place] [address] Tail Dogger: Jacques Thurston MD Cholesterol in HDL [Mass/Vol] 56 mg/dL Normal > OR = 40 [facility] Comment on above: Performed By: #### 7 600, 5363, 05892 #### [facility] [place] [address] Tail Dogger: Jacques Thurston MD Cholesterol in LDL [Mass/Vol] 209 mg/dL High [facility] Comment on above: Result Comment: LDL- C levels > or = 190 mg/dL may indicate familial hypercholesterolemia (FH). Clinical assessment and measurement of blood lipid levels should be considered for all first degree relatives of patients with an FH diagnosis. LDL Cholesterol (LDL-C) levels > or = 300 mg/dL may indicate homozygous familial hypercholesterolemia (HoFH). Untreated, these extremely high LDL-C levels can result in premature CV events and mortality. Patients should be identified early and provided appropriate interventions to reduce the cumulative LDL-C burden from . For questions about testing for familial hypercholesterolemia, please call [employer] [facility] at [phone].INFO. David Hernandez, et al. J National Lipid Association Recommendations for Patient-Centered Management of Dyslipidemia: Part 1 Journal of Clinical Lipidology 2015;9(2), 129-169. Zoila Ospina. et al. (2014). Homozygous familial hypercholesterolaemia: new insights and guidance for clinicians to improve detection and clinical management. Heart Journal, 35(32), 2259-6197. Reference range: <100 Desirable range <100 mg/dL for primary prevention; <70 mg/dL for patients with CHD or diabetic patients with > or = 2 CHD risk factors. LDL-C is now calculated using the Nirav-Coker calculation, which is a validated novel method providing better accuracy than the Friedewald equation in the estimation of LDL-C. Nirav SS et al. ELBERT. 2013;310(19): 2073-8387 (http://Wistone.BlackBamboozStudio/faq/DEO516) Performed By: #### 7 600, 5363, 83427 #### [facility] [address], [address] [place] [address] Tail Dogger: Jacques Thurston MD Cholesterol.total/Ch olesterol in HDL [Mass ratio] 5.2 {ratio} High <5.0 [facility] Comment on above: Performed By: #### 7 600, 5363, 41916 #### [facility] [address], [address] [place] [address] Tail Dogger: Jacques Thurston MD NON HDL CHOLESTEROL 235 mg/dL (calc) High <130 [facility] Comment on above: Result Comment: Non- HDL level > or = 220 is very high and may indicate genetic familial hypercholesterolemia (FH). Clinical assessment and measurement of blood lipid levels should be considered for all first-degree relatives of patients with an FH diagnosis. For patients with diabetes plus 1 major ASCVD risk factor, treating to a non-HDL-C goal of <100 mg/dL (LDL-C of <70 mg/dL) is considered a therapeutic option. Performed By: #### 7 600, 5363, 88929 #### [facility] [address], [address] [place] [address] Tail Dogger: Jacques Thurston MD Triglyceride [Mass/Vol] 121 mg/dL Normal <150 [facility] Comment on above: Performed By: #### 7 600, 5363, 10444 #### [facility] [address], [address] [place] [address] Tail Dogger: Jacques Thurston MD PSA, TOTALon 09-19-2023 PSA, TOTAL 3.31 ng/mL Normal < OR = 4.00 [facility] Comment on above: Result Comment: The total PSA value from this assay system is standardized against the WHO standard. The test result will be approximately 20% lower when compared to the equimolar-standardized total PSA (Nena Brennon). Comparison of serial PSA results should be interpreted with this fact in mind. This test was performed using the Siemens chemiluminescent method. Values obtained from different assay methods cannot be used interchangeably. PSA levels, regardless of value, should not be interpreted as absolute evidence of the presence or absence of disease. Performed By: #### 7 600, 5363, 02160 #### [facility] [address], [address] [place] [address] Tail Dogger: Jacques Thurston MD Laboratory - Chemistry and C hemistry - challengeon 09-18-2023 Albumin [Mass/Vol] 4.6 g/dL Normal 3.6 - 5.1 g/dL [employer] [facility].; [employer] [employer] Albumin/Globulin [Mass ratio] 1.6 {ratio} Normal 1.0 - 2.5 [employer] [employer] [employer] ALP [Catalytic activity/Vol] 62 U/L Normal 35 - 144 U/L [employer] [employer] [employer] ALT [Catalytic activity/Vol] 20 U/L Normal 9 - 46 U/L [employer] [employer] [employer] AST [Catalytic activity/Vol] 20 U/L Normal 10 - 35 U/L [employer] [employer] [employer] Bilirubin [Mass/Vol] 0.4 mg/dL Normal 0.2 - 1 .2 mg/dL [employer] [facility] [employer] Calcium [Mass/Vol] 9.3 mg/dL Normal 8.6 - 10. 3 mg/dL [employer] [employer].; [employer] Chloride [Moles/Vol] 104 mmol/L Normal 98 - 11 0 mmol/L [facility].; [facility]. Cholesterol [Mass/Vol] 291 mg/dL Abnormal [facility].; [facility], [facility]. Cholesterol in HDL [Mass/Vol] 56 mg/dL Normal [facility].; [facility], [facility]. Cholesterol in LDL [Mass/Vol] 209 mg/dL Abnormal [facility].; [facility]. CO2 [Moles/Vol] 28 mmol/L Normal 20 - 32 mmol/L [facility].; [facility], [facility]. Creatinine [Mass/Vol] 0.99 mg/dL Normal 0.70 - 1.35 mg/dL [facility].; [facility], [facility]. GFR/1.73 sq M.predicted among non-blacks MDRD (S/P/Bld) [Vol rate/Area] 85 mL/min/{1.73_m2} Normal [facility].; [employer], [facility]. Glucose [Mass/Vol] 102 mg/dL Abnormal 65 - 99 mg/dL [facility].; [facility], [facility]. Potassium [Moles/Vol] 4.1 mmol/L Normal 3.5 - 5.3 mmol/L [facility].; [facility], [facility]. Protein [Mass/Vol] 7.5 g/dL Normal 6.1 - 8.1 g/dL [facility].; [employer] Sodium [Moles/Vol] 141 mmol/L Normal 135 - 146 mmol/L [facility].; [employer] [facility], [facility]. Triglyceride [Mass/Vol] 121 mg/dL Normal [facility].; [employer] [facility], [employer]. Urea nitrogen [Mass/Vol] 15 mg/dL Normal 7 - 25 mg/dL [facility].; [employer] [facility], [facility]. No Panel Informationon 09-17 BUN/CREATININE RATIO SEE NOTE: Normal 6 - 22 [facility].; [employer] CHOL/HDLC RATIO 5.2 Abnormal [facility]; [facility]. GLOBULIN 2.9 Normal 1.9 - 3.7 [facility].; [facility] NON HDL CHOLESTEROL 235 Abnormal [facility].; [facility], [facility]. PSA, TOTAL 3.31 ng/mL Normal [facility].; [facility]. Final Surgical Pathology Rep wilfrido 04-19-2023 Final Surgical Pathology Report . Pathology Reports Accession: Collected Date/Time: Received Date/Time: Pathologist: [id number] 2023 14:17 EST 04/18/2023 14:32 EST VIV CHAVARRIA MD Final Surgical Pathology Report DIAGNOSIS: GALLBLADDER: - CHRONIC CHOLECYSTITIS, WITH CHOLELITHIASIS AND CHOLESTEROLOSIS CLINICAL INFORMATION: GALL BLADDER POLYP PROCEDURE: GALLBLADDER SPECIMEN: A GALLBLADDER GROSS DESCRIPTION: All parts labelled with patient name and [id number] Received in formalin labelled gallbladder Dimensions - 6.0 x 2.9 x 2.9 cm Cystic duct/pericystic duct lymph node - no lymph node identified Serosal surface - smooth and yeung-green Luminal contents - dark green bile and multiple yellow stones measuring less than 0.1 to 0.4 cm Mucosal surface - dark velvety green with multiple yellow polypoid areas ranging in size from less than 0.1 cm to 0.2 cm Wall thickness - 0.2 to 0.3 cm RS-1 Alysa Back, Grossing Grad Intern/ Dr. Parmjit Rao, Pathologist Dictated by Alysa Back MICROSCOPIC DESCRIPTION: The microscopic examination is performed, except in the case of Gross Only. Electronically Signed by Pathology Report verified by [facility] VIV CHAVARRIA Sign out Date: 04/19/2023 11:39 Performing Lab: [facility], [address] [place] [address] States Pathology Dept Disclaimer If ancillary studies were utilized, the following Laboratory Developed Test (LDT) disclaimer will apply: Under CLIA requirements, [facility] is qualified to perform high complexity testing. For all ancillary stains, positive and negative controls stain appropriately. Performance characteristics of immunohistochemical and chromogenic in-situ hybridization tests have been determined by [facility]. These tests are used for clinical purposes, They should not be regarded as investigational or for research. Normal [facility] ([place]) Laboratory - Chemistry and C hemistry - challengeon 06-21-2022 Albumin [Mass/Vol] 4.6 g/dL Normal 3.6 - 5.1 g/dL [facility], [facility].; [employer] [facility], [facility]. Albumin/Globulin [Mass ratio] 1.6 {ratio} Normal 1.0 - 2.5 [facility], [facility].; [employer] [facility], [facility]. ALP [Catalytic activity/Vol] 74 U/L Normal 35 - 144 U/L [facility], [facility].; [employer] [facility], [employer]. ALT [Catalytic activity/Vol] 30 U/L Normal 9 - 46 U/L [facility], [facility].; [employer] [facility], [employer]. AST [Catalytic activity/Vol] 22 U/L Normal 10 - 35 U/L [employer] [facility], [facility].; [employer], [employer]. Bilirubin [Mass/Vol] 0.5 mg/dL Normal 0.2 - 1 .2 mg/dL [employer] [facility], [facility].; [employer] Calcium [Mass/Vol] 9.8 mg/dL Normal 8.6 - 10. 3 mg/dL [employer] [facility], [facility].; [employer] Chloride [Moles/Vol] 104 mmol/L Normal 98 - 11 0 mmol/L [facility], [facility].; [employer], [employer]. Cholesterol [Mass/Vol] 259 mg/dL Abnormal [employer] [employer] [facility].; [employer], [employer]. Cholesterol in HDL [Mass/Vol] 60 mg/dL Normal [employer], [facility].; [employer] Cholesterol in LDL [Mass/Vol] 174 mg/dL Abnormal [employer], [facility].; [employer], [employer]. CO2 [Moles/Vol] 29 mmol/L Normal 20 - 32 mmol/L [employer], [facility].; [employer] Creatinine [Mass/Vol] 0.99 mg/dL Normal 0.70 - 1.35 mg/dL [facility], [facility].; [employer], [employer]. GFR/1.73 sq M.predicted among non-blacks MDRD (S/P/Bld) [Vol rate/Area] 86 mL/min/{1.73_m2} Normal [facility]; [facility], [facility] Glucose [Mass/Vol] 111 mg/dL Abnormal 65 - 99 mg/dL [facility]; [facility], [facility] Potassium [Moles/Vol] 4.5 mmol/L Normal 3.5 - 5.3 mmol/L [facility]; [facility], [facility] Protein [Mass/Vol] 7.5 g/dL Normal 6.1 - 8.1 g/dL [facility]; [facility], [facility] Sodium [Moles/Vol] 141 mmol/L Normal 135 - 146 mmol/L [facility]; [facility], [facility] Triglyceride [Mass/Vol] 119 mg/dL Normal [facility]; [facility], [facility] Urea nitrogen [Mass/Vol] 18 mg/dL Normal 7 - 25 mg/dL [facility]; [facility], [facility] No Panel Informationon 06-21 BUN/CREATININE RATIO NOT APPLICABLE Normal 6 - 22 [facility]; [facility], [facility] CHOL/HDLC RATIO 4.3 Normal [facility]; [facility], [facility] GLOBULIN 2.9 Normal 1.9 - 3.7 [facility]; [facility], [facility] NON HDL CHOLESTEROL 199 Abnormal [facility]; [facility], [facility] PSA, TOTAL 2.91 ng/mL Normal [facility]; [facility], [facility]. Laboratory - Chemistry and C hemistry - challengeon 09-23-2021 Bilirubin Ql (U) Negative Normal [facility]; [facility], [facility] Ketones Ql (U) Negative Normal [facility]; [facility], [facility] pH (U) 5.5 [pH] Normal [facility]; [facility], [facility] Specific gravity (U) [Rel density] 1.010 Normal [facility]; [facility], [facility] Urobilinogen Qn (U) 0.2 mg/dL Normal [facility].; [employer] [facility] Laboratory - Hematology and Cell countson 09-23-2021 Hemoglobin Ql (U) Negative Normal [facility].; [employer] [employer]. Laboratory - Specimen inform ationon 09-23-2021 Appearance (U) Clear Normal [facility].; [employer] Color (U) Yellow Normal [facility].; [employer] Laboratory - Urinalysison Glucose Test strip (U) [Mass/Vol] Negative Normal [facility].; [employer] Leukocyte esterase Test strip Ql (U) Negative Normal [facility].; [employer] Nitrite Ql (U) Negative Normal [facility].; [employer] Protein Ql (U) Negative Normal [facility].; [employer] [employer]. Laboratory - Chemistry and C hemistry - challengeon 06-21-2021 Albumin [Mass/Vol] 4.2 g/dL Normal 3.6 - 5.1 g/dL [facility].; [employer] [facility]. Albumin/Globulin [Mass ratio] 1.6 {ratio} Normal 1.0 - 2.5 [facility]; [employer] [employer] [facility]. ALP [Catalytic activity/Vol] 62 U/L Normal 35 - 144 U/L [facility].; [employer]. ALT [Catalytic activity/Vol] 48 U/L Abnormal 9 - 46 U/L [facility].; [employer]. AST [Catalytic activity/Vol] 32 U/L Normal 10 - 35 U/L [facility] [facility].; [place] [employer]. Bilirubin [Mass/Vol] 0.3 mg/dL Normal 0.2 - 1 .2 mg/dL [facility].; [place] [employer], [employer]. Calcium [Mass/Vol] 9.2 mg/dL Normal 8.6 - 10. 3 mg/dL [facility].; [place] [employer]. Chloride [Moles/Vol] 106 mmol/L Normal 98 - 11 0 mmol/L [facility].; [facility]. Cholesterol [Mass/Vol] 231 mg/dL Abnormal [facility].; [facility], [facility] Cholesterol in HDL [Mass/Vol] 50 mg/dL Normal [facility]; [facility], [facility] Cholesterol in LDL [Mass/Vol] 150 mg/dL Abnormal [facility].; [facility]. CO2 [Moles/Vol] 29 mmol/L Normal 20 - 32 mmol/L [facility].; [facility], [facility]. Creatinine [Mass/Vol] 0.88 mg/dL Normal 0.70 - 1.25 mg/dL [facility]; [facility], [facility]. GFR/1.73 sq M.predicted among blacks MDRD (S/P/Bld) [Vol rate/Area] 107 mL/min/{1.73_m2} Normal [facility].; [facility], [facility] Glucose [Mass/Vol] 106 mg/dL Abnormal 65 - 99 mg/dL [facility].; [facility], [facility]. Potassium [Moles/Vol] 4.2 mmol/L Normal 3.5 - 5.3 mmol/L [facility]; [facility], [facility]. Protein [Mass/Vol] 6.8 g/dL Normal 6.1 - 8.1 g/dL [facility], [facility].; [place] [employer] Sodium [Moles/Vol] 141 mmol/L Normal 135 - 146 mmol/L [facility].; [place] [employer], [facility]. Triglyceride [Mass/Vol] 177 mg/dL Abnormal [facility].; [facility], [facility]. Urea nitrogen [Mass/Vol] 15 mg/dL Normal 7 - 25 mg/dL [facility].; [place] [employer] [facility], [facility]. No Panel Informationon 06-21 BUN/CREATININE RATIO NOT APPLICABLE Normal 6 - 22 [facility].; [place] [employer], [facility] CHOL/HDLC RATIO 4.6 Normal [facility]; [facility] eGFR NON-AFR. EGYPTIAN 92 Normal [facility].; [facility] GLOBULIN 2.6 Normal 1.9 - 3.7 [facility].; [place] [employer] [facility] NON HDL CHOLESTEROL 181 Abnormal [facility].; [facility] PSA, TOTAL 2.76 ng/mL Normal [facility].; [place] [employer] [facility] Laboratory - Chemistry and C hemistry - challengeon 05-13-2021 Bilirubin Ql (U) Negative Normal [facility].; [place] [employer] [facility] Ketones Ql (U) Negative Normal [facility].; [place] [employer] [facility] pH (U) 5.5 [pH] Normal [facility].; [place] [employer] [facility] Specific gravity (U) [Rel density] 1.005 Abnormal [facility].; [place] [employer] [facility] Urobilinogen Qn (U) 0.2 mg/dL Normal [facility].; [place] [employer] [facility]. Laboratory - Hematology and Cell countson 05-13-2021 Hemoglobin Ql (U) Negative Normal [facility].; [place] [employer] [facility]. Laboratory - Specimen inform ationon 05-13-2021 Appearance (U) Clear Normal [facility].; [place] [employer] Color (U) Yellow Normal [facility].; [place] [employer] [facility] Laboratory - Urinalysison Glucose Test strip (U) [Mass/Vol] Negative Normal [facility].; [employer] [facility]. Leukocyte esterase Test strip Ql (U) - Normal [facility].; [employer]. Nitrite Ql (U) Negative Normal [facility].; [employer]. Protein Ql (U) Negative Normal [facility].; [employer]. Laboratory - Chemistry and C hemistry - challengeon 09-07-2020 Albumin [Mass/Vol] 4.6 g/dL Normal 3.6 - 5.1 g/dL [facility].; [facility], [facility]. Albumin/Globulin [Mass ratio] 1.6 {ratio} Normal 1.0 - 2.5 [facility].; [facility], [facility]. ALP [Catalytic activity/Vol] 65 U/L Normal 35 - 144 U/L [facility].; [facility], [facility]. ALT [Catalytic activity/Vol] 20 U/L Normal 9 - 46 U/L [facility].; [facility], [facility]. AST [Catalytic activity/Vol] 17 U/L Normal 10 - 35 U/L [facility].; [facility], [facility]. Bilirubin [Mass/Vol] 0.3 mg/dL Normal 0.2 - 1 .2 mg/dL [facility].; [facility], [facility]. Calcium [Mass/Vol] 9.5 mg/dL Normal 8.6 - 10. 3 mg/dL [facility].; [facility], [facility]. Chloride [Moles/Vol] 104 mmol/L Normal 98 - 11 0 mmol/L [facility].; [facility], [facility]. Cholesterol [Mass/Vol] 252 mg/dL Abnormal [facility].; [facility], [facility]. Cholesterol in HDL [Mass/Vol] 60 mg/dL Normal [facility].; [facility], [facility]. Cholesterol in LDL [Mass/Vol] 151 mg/dL Abnormal [facility], [facility].; [facility], [facility]. CO2 [Moles/Vol] 26 mmol/L Normal 20 - 32 mmol/L [facility].; [facility], [facility]. Creatinine [Mass/Vol] 0.95 mg/dL Normal 0.70 - 1.25 mg/dL [facility], [facility].; [facility], [facility]. GFR/1.73 sq M.predicted among blacks MDRD (S/P/Bld) [Vol rate/Area] 100 mL/min/{1.73_m2} Normal [facility], [facility].; [place] [employer] Glucose [Mass/Vol] 99 mg/dL Normal 65 - 99 mg/dL [facility].; [facility], [facility]. Potassium [Moles/Vol] 4.2 mmol/L Normal 3.5 - 5.3 mmol/L [facility]; [facility] Protein [Mass/Vol] 7.4 g/dL Normal 6.1 - 8.1 g/dL [facility]; [facility] Sodium [Moles/Vol] 139 mmol/L Normal 135 - 146 mmol/L [facility]; [facility] Triglyceride [Mass/Vol] 248 mg/dL Abnormal [facility]; [facility] Urea nitrogen [Mass/Vol] 16 mg/dL Normal 7 - 25 mg/dL [facility]; [facility] No Panel Informationon 09-07 BUN/CREATININE RATIO NOT APPLICABLE Normal [facility]; [facility] CHOL/HDLC RATIO 4.2 Normal [facility]; [facility] eGFR NON-AFR. EGYPTIAN 86 Normal [facility]; [facility] GLOBULIN 2.8 Normal 1.9 - 3.7 [facility]; [facility] NON HDL CHOLESTEROL 192 Abnormal [facility]; [facility] PSA, TOTAL 2.7 ng/mL Normal [facility]; [facility] Laboratory - Microbiology an d Antimicrobial susceptibilityon 01-06-2020 SARS-CoV-2 (COVID-19) RNA PARUL+probe Ql (Unsp spec) Detected Abnormal [facility]; [facility] Laboratory - Chemistry and C hemistry - challengeon 12-19-2019 Bilirubin Ql (U) Negative Normal [facility]; [place] [employer] [facility] Ketones Ql (U) Negative Normal [facility]; [place] [employer] [facility], [facility] pH (U) 6.5 [pH] Normal [facility]; [place] [employer] [facility] Specific gravity (U) [Rel density] 1.020 Normal [facility]; [facility] [employer] Urobilinogen Qn (U) 0.2 mg/dL Normal [facility].; [employer]. Laboratory - Hematology and Cell countson 12-19-2019 Hemoglobin Ql (U) Negative Normal [facility].; [employer]. Laboratory - Specimen inform ationon 12-19-2019 Appearance (U) clear Normal [facility] Jackson[facility]; [employer] Color (U) yellow Normal [place] [employer]; [employer]. Laboratory - Urinalysison Glucose Test strip (U) [Mass/Vol] Negative Normal [place] [employer].; [employer]. Leukocyte esterase Test strip Ql (U) Negative Normal [place] [employer] [facility].; [employer]. Nitrite Ql (U) Negative Normal [facility].; [employer]. Protein Ql (U) Negative Normal [facility] [employer]; [employer]. Laboratory - Microbiology an d Antimicrobial susceptibilityon 02-03-2017 FLUAV Ag IA Ql (Throat) Negative Normal [place] [employer].; [employer]. Laboratory - Hematology and Cell countson 08-01-2013 Basophils (Bld) [#/Vol] 40 {Cells}/uL Normal 0 - 200 {Cells}/uL [facility].; [employer]. Basophils/100 WBC (Bld) 0 % Normal [place] [employer] [facility].; [employer]. Eosinophils (Bld) [#/Vol] 1060 {Cells}/uL Abnormal 15 - 500 {Cells}/uL [place] [employer].; [employer]. Eosinophils/100 WBC (Bld) 12 % Normal [place] [employer].; [employer]. Erythrocyte distribution width (RBC) [Ratio] 13.1 % Normal 11.0 - 15.0 % [place] [employer].; [employer]. Hematocrit (Bld) [Volume fraction] 45.8 % Normal 38.5 - 50.0 % [employer].; [employer]. Hemoglobin (Bld) [Mass/Vol] 15.6 g/dL Normal 13.2 - 17.1 g/dL [facility].; [facility], [facility]. Lymphocytes (Bld) [#/Vol] 3190 {Cells}/uL Normal 850 - 3900 {Cells}/uL [facility], [facility].; [facility], [facility]. Lymphocytes/100 WBC (Bld) 37 % Normal [facility].; [facility], [facility]. MCH (RBC) [Entitic mass] 31.1 pg Normal 27.0 - 33.0 PG [facility].; [facility], [facility]. MCHC (RBC) [Mass/Vol] 34.0 g/dL Normal 32.0 - 36.0 g/dL [facility].; [facility], [facility]. MCV (RBC) [Entitic vol] 91.5 fL Normal 80.0 - 100.0 fL [facility], [facility].; [facility], [facility]. Monocytes (Bld) [#/Vol] 700 {Cells}/uL Normal 200 - 950 {Cells}/uL [facility].; [place] [employer], [facility]. Monocytes/100 WBC (Bld) 8 % Normal [facility].; [facility], [facility]. Neutrophils (Bld) [#/Vol] 3670 {Cells}/uL Normal 1500 - 7800 {Cells}/uL [facility].; [place] [employer], [facility]. Neutrophils/100 WBC (Bld) 42 % Normal [facility].; [facility], [facility]. Platelets (Bld) [#/Vol] 229 10*3/uL Normal 140 - 400 10*3/uL [facility].; [place] [employer], [facility]. RBC (Bld) [#/Vol] 5.00 10*6/uL Normal 4.20 - 5.8 0 10*6/uL [facility].; [place] [employer], [facility]. WBC (Bld) [#/Vol] 8.6 10*3/uL Normal 3.8 - 10.8 10*3/uL [facility], [facility].; [place] [employer], [facility]. Laboratory - Microbiology an d Antimicrobial susceptibilityon 08-01-2013 Streptolysin O Ab Qn 94 [IU]/mL Normal [facility].; [facility] Laboratory - Chemistry and C hemistry - challengeon 06-24-2011 Bilirubin Ql (U) Negative Normal [facility]; [facility], [facility] Cholesterol [Mass/Vol] 209 mg/dL Abnormal 0 - 200.0 mg/dL [facility]; [facility] Cholesterol in HDL [Mass/Vol] 61 mg/dL Abnormal 30.0 - 40.0 mg/dL [facility]; [facility] Cholesterol in LDL [Mass/Vol] 133 mg/dL Abnormal 50.0 - 130.0 mg/dL [facility]; [facility] Cholesterol non HDL [Mass/Vol] 149 mg/dL Normal [facility]; [facility] Cholesterol.total/Ch olesterol in HDL [Mass ratio] 3.5 {ratio} Normal 0 - 5.0 [facility]; [facility] Ketones Ql (U) Negative Normal [facility]; [place] [employer] [facility] pH (U) 5.5 [pH] Normal 4.6 - 8.0 [facility]; [place] [employer] [facility] Specific gravity (U) [Rel density] 1.020 Normal 1.001 - 1.025 [facility]; [place] [employer] [facility], [facility] Triglyceride [Mass/Vol] 77 mg/dL Normal 40 - 150 mg/dL [facility]; [place] [employer] [facility]. Laboratory - Hematology and Cell countson 06-24-2011 Hemoglobin Ql (U) Negative Normal [facility]; [place] [employer] [facility]. Laboratory - Specimen inform ationon 06-24-2011 Appearance (U) Clear Normal [facility]; [place] [employer] [facility] JacksonArt[facility] Color (U) Yellow Normal [facility].; [place] [employer] [facility]. Laboratory - Urinalysison Glucose Test strip (U) [Mass/Vol] Negative Normal [facility]; [place] [employer] Leukocyte esterase Test strip Ql (U) Negative Normal [place] [employer] [facility].; [employer]. Nitrite Ql (U) Negative Normal [facility].; [employer]. Protein Ql (U) Negative Normal [facility].; [employer]. No Panel Informationon 06-23 UA - UROBILINOGEN 0.2 mg/dL Normal [place] [employer].; [employer] Vital Signs Date Time Vital Sign Value Performing Clinician Facility 09-26-2023 08:29-0400 Body height 175.26 cm Parish Piedra MD Work Phone: [place] [employer] [facility].; [place] [employer]. 09-26-2023 08:29-0400 Body mass index (BMI) [Ratio] 24.37 kg/m2 Parish Piedra MD Work Phone: [place] [employer].; [employer]. 09-26-2023 08:29-0400 Body surface area Derived from formula 1.9 m2 Parish Piedra MD Work Phone: [place] [employer].; [employer]. 09-26-2023 08:29-0400 Body weight 74.84 kg Parish Piedra MD Work Phone: [place] [employer].; [employer]. 09-26-2023 08:29-0400 Diastolic blood pressure 76 mm[Hg] Parish Piedra MD Work Phone: [place] [employer].; [employer]. Comment on above: Patient Position: Sitting; Cuff Location : Left Arm; Cuff Size: Large 09-26-2023 08:29-0400 Heart rate 73 /min Parish Piedra MD Work Phone: [employer].; [employer]. Comment on above: Pattern: Regular 09-26-2023 08:29-0400 Systolic blood pressure 124 mm[Hg] Parish Piedra MD Work Phone: [place] [employer].; [employer]. Comment on above: Patient Position: Sitting; Cuff Location : Left Arm; Cuff Size: Large 09-29-2022 [id number]:24040 Body temperature 97.3 [degF] Luis Cordoba [employer] [facility], [facility].; [facility] 09-29-2022 13:24040 Body weight 75.3 kg Luis Cordoba [employer] [facility], [facility].; [place] [employer] [facility], Inc[employer] 09-29-2022 13:24040 Diastolic blood pressure 76 mm[Hg] Luis Cordoba [facility], [facility].; [employer] [facility], Inc[employer] Comment on above: Patient Position: Sitting; Cuff Location : Left Arm; Cuff Size: Standard 09-29-2022 13:24040 Heart rate 71 /min Luis Cordoba [facility], Inc.; [employer] [facility], Inc[employer] Comment on above: Pattern: Regular 09-29-2022 13:24-0400 Systolic blood pressure 112 mm[Hg] Luis Cordoba [facility], [facility].; [employer] [facility], Inc[employer] Comment on above: Patient Position: Sitting; Cuff Location : Left Arm; Cuff Size: Standard 06-28-2022 09:18040 Body height 175.26 cm Majo Johns [facility], [facility].; [place] [employer] [facility], [employer] 06-28-2022 09:180400 Body mass index (BMI) [Ratio] 24.22 kg/m2 Majo Johns [facility], Inc.; [facility], [facility]. 06-28-2022 09:18040 Body surface area Derived from formula 1.9 m2 Majo Johns [employer] [facility], [facility].; [employer] [facility], [facility]. 06-28-2022 09:18040 Body weight 74.39 kg Majo Johns [facility], [facility].; [place] [employer] [facility], [facility]. 06-28-2022 09:180400 Diastolic blood pressure 78 mm[Hg] Majo Johns [employer] [facility], [facility].; [employer] [facility], [employer]. Comment on above: Patient Position: Sitting; Cuff Location : Left Arm; Cuff Size: Large 06-28-2022 09:18-0400 Heart rate 77 /min Majo Johns [facility], [employer].; [employer]. Comment on above: Pattern: Regular 06-28-2022 09:18-0400 Systolic blood pressure 126 mm[Hg] Majo Johns [facility], Inc.; [employer]. Comment on above: Patient Position: Sitting; Cuff Location : Left Arm; Cuff Size: Large 09-23-2021 09:47-0400 Body temperature 97.6 [degF] Parish Piedra MD Work Phone: [place] [employer].; [employer]. 09-23-2021 09:47-0400 Body weight 74.39 kg Parish Piedra MD Work Phone: [place] [employer] [facility].; [employer]. 09-23-2021 09:47-0400 Diastolic blood pressure 74 mm[Hg] Parish Piedra MD Work Phone: [place] [employer] [facility].; [employer]. Comment on above: Patient Position: Sitting; Cuff Location : Left Arm; Cuff Size: Standard 09-23-2021 09:47-0400 Heart rate 71 /min Parish Piedra MD Work Phone: [place] [employer] [facility] Jackson[facility].; [employer]. Comment on above: Pattern: Regular 09-23-2021 09:47-0400 Systolic blood pressure 112 mm[Hg] Parish Piedra MD Work Phone: [place] [employer] [facility].; [employer]. Comment on above: Patient Position: Sitting; Cuff Location : Left Arm; Cuff Size: Standard 06-28-2021 08:36-0400 Body height 175.26 cm Majo Johns [facility] [employer] [facility], [employer].; [employer]. 06-28-2021 08:36-0400 Body mass index (BMI) [Ratio] 23.63 kg/m2 Majo Johns [facility], [facility].; [employer]. 06-28-2021 08:36-0400 Body surface area Derived from formula 1.88 m2 Majo Johns LPN [facility], Inc.; [employer], [employer]. 06-28-2021 08:36-0400 Body weight 72.58 kg Majo Johns LPN [facility], [facility].; [employer], Inc. 06-28-2021 08:36-0400 Diastolic blood pressure 85 mm[Hg] Majo Johns LPN [facility], [facility] [employer], [employer]. Comment on above: Patient Position: Sitting; Cuff Location : Left Arm; Cuff Size: Large 06-28-2021 08:36-0400 Heart rate 86 /min Majo Johns BARBER OR BEAUTY SHOP MANAGER [facility], Inc.; [employer], [employer]. Comment on above: Pattern: Regular 06-28-2021 08:36-0400 Systolic blood pressure 118 mm[Hg] Majo Johns LPN [facility], [facility] [employer], [employer]. Comment on above: Patient Position: Sitting; Cuff Location : Left Arm; Cuff Size: Large 05-13-2021 10:46-0500 Body height 175.[address] [facility], [employer].; [employer], [employer]. 05-13-2021 10:46-0500 Body mass index (BMI) [Ratio] 23.63 kg/m2 Saige Patterson [facility], Inc.; [employer], Inc. 05-13-2021 10:46-0500 Body surface area Derived from formula 1.[address] [facility], [facility].; [employer], [employer]. 05-13-2021 10:46-0500 Body temperature 98 [degF] Saige Patterson [facility] [employer] [facility], [employer].; [employer], [employer]. Comment on above: Method: Tympanic 05-13-2021 10:46-0500 Body weight 72.58 kg Saige Patterson [facility] [employer] [facility], [employer].; [employer], [employer] 05-13-2021 10:46-0500 Diastolic blood pressure 78 mm[Hg] Saige Patterson [facility] [employer] [facility], [employer].; [employer]. Comment on above: Patient Position: Sitting; Cuff Location : Right Arm; Cuff Size: Standard 05-13-2021 10:46-0500 Heart rate 71 /min Saige Leonardo EVIDENCE TECHNICIAN [employer].; [employer]. Comment on above: Pattern: Regular 05-13-2021 10:46-0500 Inhaled oxygen concentration 20 % Saige Leonardo [facility] [employer], [employer] Comment on above: Room air 05-13-2021 10:46-0500 Inhaled oxygen concentration 21 % Saige Leonardo [facility] [employer].; [employer]. Comment on above: Room air 05-13-2021 10:46-0500 SaO2% (BldA) [Mass fraction] 97 % Saige Leonardo [facility].; [employer] 05-13-2021 10:46-0500 Systolic blood pressure 118 mm[Hg] Saige Leonardo [facility] [employer].; [employer], [employer] Comment on above: Patient Position: Sitting; Cuff Location : Right Arm; Cuff Size: Standard 04-08-2021 11:29-0500 Body temperature 102.5 [degF] Saige Leonardo [facility] [employer]. Comment on above: Method: Tympanic 04-08-2021 11:29-0500 Heart rate 85 /min Saige Leonardo [facility] [employer].; [employer], [employer] Comment on above: Pattern: Regular 04-08-2021 11:29-0500 Inhaled oxygen concentration 20 % Saige Leonardo [facility] [employer]. Comment on above: Room air 04-08-2021 11:29-0500 Inhaled oxygen concentration 21 % Saige Leonardo [facility] [employer].; [employer]. Comment on above: Room air 04-08-2021 11:29-0500 SaO2% (BldA) [Mass fraction] 99 % Saige Leonardo [facility] [employer].; [employer], [employer] 09-23-2020 07:44-0400 Body height 175.26 cm [facility].; [facility], [facility]. 09-23-2020 07:44-0400 Body mass index (BMI) [Ratio] 23.78 kg/m2 Majo Johns LPN [facility], [facility].; [facility] 09-23-2020 07:44-0400 Body surface area Derived from formula 1.88 m2 Majo Johns BARBER OR BEAUTY SHOP MANAGER [facility], [facility].; [place] [employer] [facility], [facility]. 09-23-2020 07:44-0400 Body weight 73.03 kg Majo Johns LPN [facility], [facility].; Miguel [employer] [facility], [employer]. 09-23-2020 07:44-0400 Diastolic blood pressure 79 mm[Hg] Majo Johns BARBER [employer] BEAUTY SHOP MANAGER [facility], [facility].; Miguel [employer] [facility], [employer]. Comment on above: Patient Position: Sitting; Cuff Location : Left Arm; Cuff Size: Large 09-23-2020 07:44-0400 Heart rate 70 /min Majo Johns BARBER [employer] BEAUTY SHOP MANAGER [facility], [facility].; [employer], [employer]. Comment on above: Pattern: Regular 09-23-2020 07:44-0400 Systolic blood pressure 122 mm[Hg] Majo Johns BARBER OR BEAUTY SHOP MANAGER [facility], [facility].; Miguel [employer] [facility], [employer]. Comment on above: Patient Position: Sitting; Cuff Location : Left Arm; Cuff Size: Large 01-06-2020 11:05-0400 Body height 175.26 cm Majo Johns BARBER OR BEAUTY SHOP MANAGER [facility], [facility].; [place] [employer] [facility], Inc[employer] 01-06-2020 11:05-0400 Body temperature 99.6 [degF] Majo Johns [facility], [facility].; [employer], [employer]. Comment on above: Method: Tympanic 01-06-2020 11:05-0400 Inhaled oxygen concentration 20 % [facility], [facility].; [employer], [employer]. Comment on above: Room air 01-06-2020 11:05-0400 Inhaled oxygen concentration 21 % NayeSlime Johns BARBER OR BEAUTY SHOP MANAGER [facility], [facility].; [employer]. Comment on above: Room air 01-06-2020 11:05-0400 SaO2% (BldA) [Mass fraction] 95 % Majo Johns JOHNNY [employer].; [employer]. 12-19-2019 09:40-0400 Body height 175.26 cm Parish Piedra MD Work Phone: [employer]; [employer]. 12-19-2019 09:40-0400 Body mass index (BMI) [Ratio] 23.63 kg/m2 Parish Piedra MD Work Phone: [employer]; [employer]. 12-19-2019 09:40-0400 Body surface area Derived from formula 1.88 m2 Parish Piedra MD Work Phone: [employer]; [employer]. 12-19-2019 09:40-0400 Body temperature 97.9 [degF] Parish Piedra MD Work Phone: [employer]; [employer]. Comment on above: Method: Tympanic 12-19-2019 09:40-0400 Body weight 72.58 kg Parish Piedra MD Work Phone: [employer]; [employer]. 12-19-2019 09:40-0400 Diastolic blood pressure 63 mm[Hg] Parish Piedra MD Work Phone: [employer]; [employer]. Comment on above: Patient Position: Sitting; Cuff Location : Left Arm; Cuff Size: Standard 12-19-2019 09:40-0400 Heart rate 69 /min Parish Piedra MD Work Phone: [employer]; [employer]. Comment on above: Pattern: Regular 12-19-2019 09:40-0400 Systolic blood pressure 102 mm[Hg] Parish Piedra MD Work Phone: [employer].; [employer]. Comment on above: Patient Position: Sitting; Cuff Location : Left Arm; Cuff Size: Standard 02-03-2017 08:43-0500 Body height 175.26 cm Gail Serranopj TURNER Miguel [employer] [facility], Inc.; [employer], Inc[employer] 02-03-2017 08:43-0500 Body mass index (BMI) [Ratio] 23.18 kg/m2 [facility] [employer], [employer].; [employer], [employer] 02-03-2017 08:43-0500 Body surface area Derived from formula 1.86 m2 Gailkeshia Caballero LPN Miguel [employer], [employer].; [employer], [employer] 02-03-2017 08:43-0500 Body temperature 99.1 [degF] Gail Stokescurtis [facility], Inc.; [employer], Inc. Comment on above: Method: Tympanic 02-03-2017 08:43-0500 Body weight 71.22 kg Gail Wecurtis TURNER Miguel [employer], [employer].; [employer], [employer] 02-03-2017 08:43-0500 Diastolic blood pressure 66 mm[Hg] Gail Kikecurtis TURNER [employer], [employer].; [employer], [employer] Comment on above: Patient Position: Sitting; Cuff Location : Left Arm; Cuff Size: Standard 02-03-2017 08:43-0500 Heart rate 80 /min Gail Kikecurtis TURNER Miguel [employer], [employer].; [employer], [employer] Comment on above: Pattern: Regular 02-03-2017 08:43-0500 Inhaled oxygen concentration 20 % Gail Caballero LPN [employer], [employer].; [employer], [employer]. Comment on above: Room air 02-03-2017 08:43-0500 Inhaled oxygen concentration 21 % Gail Caballero LPN [employer], [employer].; [employer], [employer]. Comment on above: Room air 02-03-2017 08:43-0500 SaO2% (BldA) [Mass fraction] 99 % Gail Caballero LPN [employer], [employer].; [employer], [employer] 02-03-2017 08:43-0500 Systolic blood pressure 100 mm[Hg] Gail Caballero LPN [employer], [employer].; [employer]. Comment on above: Patient Position: Sitting; Cuff Location : Left Arm; Cuff Size: Standard 02-25-2016 08:21-0500 Body height 175.26 cm Parish Piedra MD Work Phone: [employer]; [employer]. 02-25-2016 08:21-0500 Body mass index (BMI) [Ratio] 23.33 kg/m2 Parish Piedra MD Work Phone: [employer].; [employer]. 02-25-2016 08:21-0500 Body surface area Derived from formula 1.87 m2 Parish Piedra MD Work Phone: [employer]; [employer]. 02-25-2016 08:21-0500 Body temperature 101.8 [degF] Parish Piedra MD Work Phone: [employer]; [employer]. Comment on above: Method: Tympanic 02-25-2016 08:21-0500 Body weight 71.67 kg Parish Piedra MD Work Phone: [employer]; [employer]. 02-25-2016 08:21-0500 Diastolic blood pressure 72 mm[Hg] Parish Piedra MD Work Phone: [employer].; [employer]. Comment on above: Patient Position: Sitting; Cuff Location : Left Arm; Cuff Size: Standard 02-25-2016 08:21-0500 Heart rate 88 /min Parish Piedra MD Work Phone: [employer]; [employer]. Comment on above: Pattern: Regular 02-25-2016 08:21-0500 Inhaled oxygen concentration 20 % Parish Piedra MD Work Phone: [employer].; [employer]. Comment on above: Room air 02-25-2016 08:21-0500 Inhaled oxygen concentration 21 % Parish Piedra MD Work Phone: [employer]; [employer]. Comment on above: Room air 02-25-2016 08:21-0500 SaO2% (BldA) [Mass fraction] 96 % Parish Piedra MD Work Phone: [employer].; [employer]. 02-25-2016 08:21-0500 Systolic blood pressure 115 mm[Hg] Parish Piedra MD Work Phone: [employer].; [employer]. Comment on above: Patient Position: Sitting; Cuff Location : Left Arm; Cuff Size: Standard 03-30-2015 08:08-0500 Body temperature 97.4 [degF] Parish Piedra MD Work Phone: [employer].; [employer]. 03-30-2015 08:08-0500 Body weight 69.4 kg Parish Piedra MD Work Phone: [employer].; [employer]. 03-30-2015 08:08-0500 Diastolic blood pressure 72 mm[Hg] Parish Piedra MD Work Phone: [employer].; [employer]. Comment on above: Patient Position: Sitting; Cuff Location : Left Arm; Cuff Size: Standard 03-30-2015 08:08-0500 Heart rate 74 /min Parish Piedra MD Work Phone: [employer].; [employer]. Comment on above: Pattern: Regular 03-30-2015 08:08-0500 Systolic blood pressure 110 mm[Hg] Parish Piedra MD Work Phone: [employer].; [employer]. Comment on above: Patient Position: Sitting; Cuff Location : Left Arm; Cuff Size: Standard 05-20-2014 08:08-0500 Body height 175.26 cm [facility].; [employer]. 05-20-2014 08:08-0500 Body mass index (BMI) [Ratio] 23.18 kg/m2 [facility].; [employer]. 05-20-2014 08:08-0500 Body surface area Derived from formula 1.86 m2 Majo Johns LPN [facility], Inc.; [employer] [facility], Inc. 05-20-2014 08:08-0500 Body temperature 98 [degF] Majo Johns LPN [facility], Inc.; Miguel [employer], [employer] Comment on above: Method: Tympanic 05-20-2014 08:08-0500 Body weight 71.22 kg Majo Johns LPN [facility], Inc.; [employer], [employer]. 05-20-2014 08:08-0500 Diastolic blood pressure 75 mm[Hg] Majo Johns [facility], Inc.; [employer], [employer]. Comment on above: Patient Position: Sitting; Cuff Location : Left Arm; Cuff Size: Large 05-20-2014 08:08-0500 Heart rate 65 /min Majo Johns BARBER OR BEAUTY SHOP MANAGER [facility], Inc.; [employer], [employer]. Comment on above: Pattern: Regular 05-20-2014 08:08-0500 Inhaled oxygen concentration 20 % Majo Johns LPN [facility], Inc.; [employer], [employer]. Comment on above: Room air 05-20-2014 08:08-0500 Inhaled oxygen concentration 21 % Majo Johns BARBER OR BEAUTY SHOP MANAGER [facility], Inc.; [employer], [employer]. Comment on above: Room air 05-20-2014 08:08-0500 SaO2% (BldA) [Mass fraction] 97 % Majo Johns [facility], Inc.; [employer], [employer]. 05-20-2014 08:08-0500 Systolic blood pressure 118 mm[Hg] Majo Johns BARBER OR BEAUTY SHOP MANAGER [facility], Inc.; [employer], [employer]. Comment on above: Patient Position: Sitting; Cuff Location : Left Arm; Cuff Size: Large 11-18-2013 08:51-0400 Body weight 69.4 kg Parish Piedra MD Work Phone: [facility], [employer].; [employer], [employer] 11-18-2013 08:51-0400 Diastolic blood pressure 74 mm[Hg] Parish Piedra MD Work Phone: [employer].; [employer]. Comment on above: Patient Position: Sitting; Cuff Location : Left Arm; Cuff Size: Standard 11-18-2013 08:51-0400 Heart rate 93 /min Parish Piedra MD Work Phone: [employer].; [employer]. Comment on above: Pattern: Regular 11-18-2013 08:51-0400 Systolic blood pressure 132 mm[Hg] Parish Piedra MD Work Phone: [employer].; [employer]. Comment on above: Patient Position: Sitting; Cuff Location : Left Arm; Cuff Size: Standard 08-05-2013 08:26-0400 Body temperature 97.9 [degF] Parish Piedra MD Work Phone: [employer].; [employer]. 08-05-2013 08:26-0400 Body weight 69.4 kg Parish Piedra MD Work Phone: [employer].; [employer]. 08-05-2013 08:26-0400 Diastolic blood pressure 78 mm[Hg] Parish Piedra MD Work Phone: [employer].; [employer]. Comment on above: Patient Position: Sitting; Cuff Location : Left Arm; Cuff Size: Standard 08-05-2013 08:26-0400 Heart rate 79 /min Parish Piedra MD Work Phone: [employer].; [employer]. Comment on above: Pattern: Regular 08-05-2013 08:26-0400 Systolic blood pressure 129 mm[Hg] Parish Piedra MD Work Phone: [employer].; [employer]. Comment on above: Patient Position: Sitting; Cuff Location : Left Arm; Cuff Size: Standard 08-01-2013 08:45-0400 Body height 175.26 cm Gail Caballero LPN [employer].; [employer]. 08-01-2013 08:45-0400 Body mass index (BMI) [Ratio] 22.36 kg/m2 Gail Caballero JOHNNY [facility], [facility].; [facility], [facility]. 08-01-2013 08:45-0400 Body surface area Derived from formula 1.84 m2 Gail Caballero BARBER OR BEAUTY SHOP MANAGERSt[facility], [facility].; [place] [employer] [facility], Inc[employer] 08-01-2013 08:45-0400 Body temperature 97.3 [degF] Gail Caballero [facility], [facility].; [place] [employer] [facility], Inc[employer] Comment on above: Method: Tympanic 08-01-2013 08:45-0400 Body weight 68.69 kg Gail Caballero [facility], [facility].; [place] [employer] [facility], [facility]. 08-01-2013 08:45-0400 Diastolic blood pressure 70 mm[Hg] Gail Caballero [facility], [facility].; [place] [employer] Comment on above: Patient Position: Sitting; Cuff Location : Left Arm; Cuff Size: Standard 08-01-2013 08:45-0400 Heart rate 61 /min Gail Caballero BARBER OR BEAUTY SHOP MANAGERSt. [facility], [facility].; [employer] Comment on above: Pattern: Regular 08-01-2013 08:45-0400 Systolic blood pressure 101 mm[Hg] Gail Caballero [facility], [facility].; [employer] Comment on above: Patient Position: Sitting; Cuff Location : Left Arm; Cuff Size: Standard 11-05-2011 08:06-0400 Body height 175.26 cm Avni Walls MD Work Phone: [facility], [facility].; Miguel [employer]. 11-05-2011 08:06-0400 Body mass index (BMI) [Ratio] 21.86 kg/m2 Avni Walls MD Work Phone: [facility], [facility].; [employer], [employer]. 11-05-2011 08:06-0400 Body surface area Derived from formula 1.82 m2 Avni Walls MD Work Phone: [place] [employer] [facility].; Miguel [employer]. 11-05-2011 08:06-0400 Body temperature 97.8 [degF] Avni Walls MD Work Phone: [employer]; [employer]. Comment on above: Method: Tympanic 11-05-2011 08:06-0400 Body weight 67.13 kg Avni Walls MD Work Phone: [employer].; [employer]. 11-05-2011 08:06-0400 Diastolic blood pressure 68 mm[Hg] Avni Walls MD Work Phone: [employer].; [employer]. Comment on above: Patient Position: Sitting; Cuff Location : Left Arm; Cuff Size: Standard 11-05-2011 08:06-0400 Heart rate 68 /min Avni Walls MD Work Phone: [employer]; [employer]. Comment on above: Pattern: Regular 11-05-2011 08:06-0400 Inhaled oxygen concentration 20 % Avni Walls MD Work Phone: [employer]; [employer]. Comment on above: Room air 11-05-2011 08:06-0400 Inhaled oxygen concentration 21 % Avni Walls MD Work Phone: [employer]; [employer]. Comment on above: Room air 11-05-2011 08:06-0400 SaO2% (BldA) [Mass fraction] 98 % Avni Walls MD Work Phone: [employer]; [employer]. 11-05-2011 08:06-0400 Systolic blood pressure 105 mm[Hg] Avni Walls MD Work Phone: [employer].; [employer]. Comment on above: Patient Position: Sitting; Cuff Location : Left Arm; Cuff Size: Standard 06-24-2011 13:57-0400 Body height 175.26 cm Parish Piedra MD Work Phone: [employer]; [employer]. 06-24-2011 13:57-0400 Body mass index (BMI) [Ratio] 21.86 kg/m2 Parish Piedra MD Work Phone: [employer]; [employer]. 06-24-2011 13:57-0400 Body surface area Derived from formula 1.82 m2 Parish Piedra MD Work Phone: [employer]; [employer]. 06-24-2011 13:57-0400 Body weight 67.13 kg Parish Piedra MD Work Phone: [employer]; [employer] 06-24-2011 13:57-0400 Diastolic blood pressure 64 mm[Hg] Parish Piedra MD Work Phone: [employer]; [employer]. Comment on above: Patient Position: Sitting; Cuff Location : Left Arm; Cuff Size: Standard 06-24-2011 13:57-0400 Heart rate 57 /min Parish Piedra MD Work Phone: [employer]; [employer] Comment on above: Pattern: Regular 06-24-2011 13:57-0400 Systolic blood pressure 102 mm[Hg] Parish Piedra MD Work Phone: [employer]; [employer] Comment on above: Patient Position: Sitting; Cuff Location : Left Arm; Cuff Size: Standard Encounters Encounter Date Encounter Type Care Provider Facility Start: 10-30-2024 ambulatory PRICILA ESCALANTE MD Facility:[facility] Start: 10-29-2024 End: 10-29-2024 Patient encounter procedure PRICILA ESCALANTE MD [facility] Start: 10-28-2024 End: 11-01-2024 ambulatory ANGELO ESCOBAR MD Facility:[facility] Start: 10-21-2024 End: 10-21-2024 ambulatory PARISH PIEDRA MD Facility:[facility] Start: 10-21-2024 End: 10-21-2024 Patient encounter procedure PRICILA ESCALANTE MD [facility] Start: 07-08-2024 End: 07-08-2024 ambulatory ANGELO ESCOBAR [facility] Start: 06-06-2024 End: 06-06-2024 Historical Summary Parish Piedra MD Work Phone: [employer]. Start: 06-05-2024 End: 06-05-2024 ambulatory ANGELO ESCOBAR MD Facility:[facility] Start: 05-30-2024 End: 05-30-2024 Historical Summary Parish Piedra MD Work Phone: [employer]. Start: 05-15-2024 End: 05-15-2024 ambulatory PARISH PIEDRA MD Facility:[facility] Start: 05-15-2024 End: 05-15-2024 Patient encounter procedure PRICILA ESCALANTE MD [facility] Start: 04-23-2024 End: 04-23-2024 ambulatory PARISH PIEDRA MD Facility:[facility] Start: 04-23-2024 End: 04-23-2024 Patient encounter procedure PRICILA ESCALANTE MD [facility] Start: 04-02-2024 End: 04-02-2024 ambulatory [facility] Start: 04-01-2024 End: 04-01-2024 Medication aPrish Piedra MD Work Phone: [employer]. Start: 03-26-2024 End: 03-29-2024 Orders Parish Piedra MD Work Phone: [employer]. Start: 03-01-2024 End: 03-01-2024 ambulatory [facility] Start: 09-26-2023 End: 09-26-2023 Patient encounter status Parish Piedra MD Work Phone: [employer].; [employer]. Start: 09-26-2023 End: 09-26-2023 Periodic preventive med est patient 40-64yrs Parish Piedra MD Work Phone: [employer]. Start: 09-13-2023 End: 09-13-2023 Orders Parish Piedra MD Work Phone: [employer]. Start: 09-29-2022 End: 09-29-2022 Office outpatient visit 15 minutes Parish Piedra MD Work Phone: [employer]. Start: 06-28-2022 End: 06-28-2022 Patient encounter status Parish Piedra MD Work Phone: [employer].; [employer]. Start: 06-28-2022 End: 06-28-2022 Periodic preventive med est patient 40-64yrs Parish Piedra MD Work Phone: [employer]. Start: 06-21-2022 End: 06-21-2022 Orders Parish Piedra MD Work Phone: [employer]. Start: 10-26-2021 End: 10-26-2021 Orders Parish Piedra MD Work Phone: [employer]. Start: 09-23-2021 End: 09-23-2021 Office outpatient visit 15 minutes Parish Piedra MD Work Phone: [employer]. Start: 09-22-2021 End: 09-22-2021 Orders Parish Piedra MD Work Phone: [employer]. Start: 06-28-2021 End: 06-28-2021 Patient encounter status Parish Piedra MD Work Phone: [employer].; [employer]. Start: 06-28-2021 End: 06-28-2021 Periodic preventive med est patient 40-64yrs Parish Piedra MD Work Phone: [employer]. Start: 05-18-2021 End: 05-18-2021 Orders Parish Piedra MD Work Phone: [employer] Start: 05-13-2021 End: 05-13-2021 Orders Parish Piedra MD Work Phone: [employer]. Start: 05-13-2021 End: 05-13-2021 Office outpatient visit 15 minutes Parish Piedra MD Work Phone: [employer]. Start: 04-12-2021 End: 04-12-2021 Historical Summary Parish Piedra MD Work Phone: [employer]. Start: 04-12-2021 End: 04-12-2021 Medication Parish Piedra MD Work Phone: [employer]. Start: 04-08-2021 End: 04-08-2021 Office outpatient visit 15 minutes Parish Piedra MD Work Phone: [employer]. Start: 09-23-2020 End: 09-23-2020 Patient encounter status Parish Piedra MD Work Phone: [employer]; [employer]. Start: 09-23-2020 End: 09-23-2020 Periodic preventive med est patient 40-64yrs Parish Piedra MD Work Phone: [employer]. Start: 09-07-2020 End: 09-07-2020 Orders Parish Piedra MD Work Phone: [employer]. Start: 08-31-2020 End: 09-01-2020 Orders Parish Piedra MD Work Phone: [employer]. Start: 01-30-2020 End: 01-30-2020 Historical Summary Parish Piedra MD Work Phone: [employer]. Start: 01-06-2020 End: 01-06-2020 Patient encounter procedure Parish Piedra MD Work Phone: [employer] Start: 12-19-2019 End: 12-19-2019 Office outpatient visit 15 minutes Parish Piedra MD Work Phone: [employer]. Start: 08-15-2018 End: 08-15-2018 Historical Summary Parish Piedra MD Work Phone: [employer] Start: 02-03-2017 End: 02-03-2017 Office outpatient visit 15 minutes Parish Piedra MD Work Phone: [employer]. Start: 02-25-2016 End: 02-25-2016 Patient encounter procedure Parish Piedra MD Work Phone: [employer]. Start: 03-30-2015 End: 03-30-2015 Office outpatient visit 15 minutes Parish Piedra MD Work Phone: [employer]. Start: 05-20-2014 End: 05-20-2014 Office outpatient visit 15 minutes Parish Piedra MD Work Phone: [employer] Start: 11-18-2013 End: 11-18-2013 Patient encounter procedure Parish Piedra MD Work Phone: [employer]. Start: 08-09-2013 End: 08-09-2013 Medication Parish Piedra MD Work Phone: [employer]. Start: 08-05-2013 End: 08-05-2013 Patient encounter procedure Parish Piedra MD Work Phone: [employer]. Start: 08-02-2013 End: 08-02-2013 Medication Parish Piedra MD Work Phone: [employer]. Start: 08-01-2013 End: 08-01-2013 Patient encounter procedure Parish Piedra MD Work Phone: [employer]. Start: 11-05-2011 End: 11-05-2011 Patient encounter procedure Parish Piedra MD Work Phone: [employer]. Start: 06-24-2011 End: 06-24-2011 Patient encounter procedure Parish Piedra MD Work Phone: [employer]. Start: 06-24-2011 End: 06-24-2011 Routine general medical examination at a health care facility Parish Piedra MD Work Phone: [employer] Start: 06-21-2011 End: 06-22-2011 Orders Parish Piedra MD Work Phone: [facility] Patient encounter status [facility] Miguel [employer] [facility] Patient encounter status Saige Patterson [facility].; Miguel [employer] Patient encounter status [facility] [place] [employer] [facility] Patient encounter status [facility] [employer] Routine general medi faye examination at a health care facility [facility] [employer] Procedures Date Procedure Procedure Detail Performing Clinician Start: 10-28-2024 End: 10-28-2024 Most Recent Endo Report Parish Piedra MD Work Phone: Start: 07-17-2024 End: 07-17-2024 Most Recent Endo Report Parish Piedra MD Work Phone: Start: 06-05-2024 End: 06-05-2024 Most Recent Endo Report Parish Piedra MD Work Phone: Start: 05-30-2024 End: 05-30-2024 Most Recent Endo Report Parish Piedra MD Work Phone: Comment on above: Endocrinology appt Start: 09-26-2023 End: 09-26-2023 Depression screening Parish Piedra MD Work Phone: Start: 09-26-2023 End: 09-26-2023 Falls risk assessment documented Parish Piedra MD Work Phone: Start: 09-26-2023 End: 09-26-2023 Pt falls assess docd w/o fall/injury past year Parish Piedra MD Work Phone: Start: 09-26-2023 End: 09-26-2023 Scr dep neg, no plan reqd Parish Piedra MD Work Phone: Start: 09-18-2023 End: 09-18-2023 Lab findings surveillance Majo sinclair [employer] Comment on above: 102 Start: 09-18-2023 End: 09-18-2023 Lipid panel Majo Johns LP N Start: 09-18-2023 End: 09-18-2023 Prostate specific antigen measurement Majo Johns [employer] Comment on above: 3.31 Start: 2023 End: 2023 Cholecystectomy Majo Johns LP N Start: 06-28-2022 End: 06-27-2022 Depression screening Parish Piedra MD Work Phone: Start: 06-28-2022 End: 06-27-2022 Scr dep neg, no plan reqd Parish Piedra MD Work Phone: Start: 06-21-2022 End: 06-21-2022 Lab findings surveillance Majo sinclair [employer] Comment on above: 111 Start: 06-21-2022 End: 06-21-2022 Prostate specific antigen measurement Majo Johns [employer] Comment on above: 2.91 Start: 09-22-2021 End: 09-29-2021 Radex spine cervical 4 or 5 views Parish Piedra MD Work Phone: Start: 09-22-2021 End: 09-29-2021 Ct head/brain w/o contrast material Parish Piedra MD Work Phone: Start: 06-28-2021 End: 06-28-2021 Depression screening Parish Piedra MD Work Phone: Start: 06-28-2021 End: 06-28-2021 Scr dep neg, no plan reqd Parish Piedra MD Work Phone: Start: 06-21-2021 End: 06-21-2021 Lipid panel Majo Johns LP N Start: 09-23-2020 End: 09-23-2020 Depression screening Parish Piedra MD Work Phone: Start: 09-23-2020 End: 09-23-2020 Scr dep neg, no plan reqd Parish Piedra MD Work Phone: Start: 01-26-2020 End: 01-26-2020 Screening colonoscopy Majo Johns [employer] Comment on above: Within Normal Limits . Dr. Tevin Juarez, repeat 5 years Gallbladder structur e (body structure) PRICILA ESCALANTE MD Repair of inguinal hernia Berkley Johns [employer] Comment on above: Right. Mar 2005 Repair of inguinal hernia Berkley Johns [employer] Comment on above: Right. Mar 2005 Plan of Treatment Date Care Activity Detail Author Start: 03-28-2024 Nursing evaluation o f patient and report [facility] Immun[facility] Immunization Date Immunization Notes Care Provider Fa cility 09-23-2020 tetanus toxoid, redu ben diphtheria toxoid, and acellular pertussis vaccine, adsorbed Parish Piedra MD Work Phone: [facility]; [facility]. Comment on above: Site: Left DeltoidVI S Given: * Tdap (Tetanus, Diphtheria, Pertussis) (05/20/14) Payers Date Payer Category Payer Unknown [id number] 2024 Private Health Insurance [id number] 2018 Self-pay [id number] 1960 Unknown [id number] 2.16.8 [id number] 1959 Unknown [id number] 2.16. [id number] 1959 Unknown [id number] 2.16. [id number] 1959 Unknown [id number] 2.16.8 [id number] 1959 Unknown [id number] 2.16. [id number] 1959 Unknown [id number] 2.16. [id number] 1959 Unknown [id number] 2.16.8 [id number] 1959 Unknown [id number] 2.16.8 [id number] Unknown Social History Date Type Detail Facility Caffeine Use Caffeine Use [facility] [employer] Tobacco Use: Tobacco Use: ; N ever smoker. [facility] [employer]. Male [facility] l Start: 04-11-2024 Never smoked tobacco [facility] Sexual Orientation [facility] Start: 08-13-2018 Sex Male (finding) [facility] Clinical Note 10-21-2024 Note Date & Type Note Facility 10-21-2024 Note Exam Date Time Procedure Performing Provider Status 10/21/24 1:20 PM MRI Brain w/ + w/o Contrast BRAXTON BUSH MD; Auth (Verified) [id number] ORIGINAL EXAMINATION: MRI OF THE BRAIN WITHOUT AND WITH CONTRAST 10/21/2024 1:22 pm TECHNIQUE: Multiplanar multisequence MRI of the head/brain was performed without and with the administration of intravenous contrast. COMPARISON: None. HISTORY: ORDERING SYSTEM PROVIDED HISTORY: Reason for Exam: pituitary cyst FINDINGS: INTRACRANIAL STRUCTURES/VENTRICLES: There is a 14 mm x 14 mm x 19 mm (AP by craniocaudal by transverse) cystic lesion within the pituitary gland. Superiorly it contacts the optic chiasm. The infundibulum is displaced slightly posteriorly. Laterally it contacts the cavernous carotid arteries. Posteriorly no significant effacement of the prepontine cistern is present. No internal detail is demonstrated. M rim of pituitary tissue is present anterior to the structure. There is no acute infarct. No mass effect or midline shift. No evidence of an acute intracranial hemorrhage. The ventricles and sulci are normal in size and configuration. The normal signal voids within the major intracranial vessels appear maintained. No abnormal focus of enhancement is seen within the brain. ORBITS: The visualized portion of the orbits demonstrate no acute abnormality. SINUSES: The visualized paranasal sinuses and mastoid air cells are well aerated. BONES/SOFT TISSUES: The bone marrow signal intensity appears normal. The soft tissues demonstrate no acute abnormality. IMPRESSION: 19 mm cystic lesion of the pituitary. 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 Recommend comparison with previous studies. No acute findings in the brain. Interpreted by: Enrrique Bush Preliminary Report By: Enrrique Bush Electronically signed By Enrrique Bush Dictated Date: 10/21/2024 1:29:59 PM Prelim Date: 10/21/2024 1:35:43 PM Sign Date: 10/21/2024 1:35:43 PM Ordering Provider: PRICILA ESCALANTE [facility] Evaluation + Plan note 04-23-2024 LaboratoryRadiology Note Date & Type Note Facility 04-23-2024 Evaluation + Plan note Future Scheduled TestsACTH, Plasma 04/23/24Cortisol Level 04/23/24IGF-1 04/23/24Luteinizing Hormone 04/23/24Prolactin Level 04/23/24yroid Stimulating Hormone 04/23/24Free T4 04/23/24Follicle Stimulating Hormone Level 04/23/24MISC Lab Send out (Blood Specimens) 04/23/24MRI Brain w/ + w/o Contrast 10/21/24 [facility] Evaluation + Plan note Radiology Note Date & Type Note Facility Evaluation + Plan note Future Appointments Appointment Date:10/21/2024 01:15:00 PM Scheduled Provider: Location:RAD Appointment Type:MRI Brain w/ + w/o Contrast Appointment Date:10/29/2024 11:00:00 AM Scheduled Provider:PRICILA ESCALANTE MD Location:NEUROS Appointment Type:NS OV Diagnostic Tests PendingIGF-1 05/15/24ACTH, Plasma 05/15/24Miscellaneous LC Test 05/15/24 Future Scheduled TestsMRI Brain w/ + w/o Contrast 10/21/24 [facility] Evaluation + Plan note Note Date & Type Note Facility Evaluation + Plan note Future Appointments Appointment Date:10/29/2024 11:00:00 AM Scheduled Provider:PRICILA ESCALANTE MD Location:NEUROS Appointment Type:NS OV [facility] Evaluation + Plan note Radiology Note Date & Type Note Facility Evaluation + Plan note Future Scheduled TestsMRI Brain w/ + w/o Contrast 10/29/25 [facility] Hospital course Narrative Note Date & Type Note Facility Hospital course Narrative No data available for this section [facility] Hospital Discharge instructions Note Date & Type Note Facility Hospital Discharge instructions No data available for this section [facility] Progress note Note Date & Type Note Facility Progress note No data available for this section [facility] Family History No Family History Records Found Cancer Status:Active Comments:Prostat e-Father Cerebrovascular Accident Status:Active Comment s:Negative Family History Of. Coronary Artery Disease Status:Active Comments :Paternal Grandfather. Diabetes Mellitus Type II Status:Active Commen ts:Negative Family History Of. Hypertension Status:Active Comments:Father. Cancer Status:Active Comments:Prostat e-Father Cerebrovascular Accident Status:Active Comment s:Negative Family History Of. Coronary Artery Disease Status:Active Comments :Paternal Grandfather. Diabetes Mellitus Type II Status:Active Commen ts:Negative Family History Of. Hypertension Status:Active Comments:Father. Cancer Status:Active Comments:Prostat e-Father Cerebrovascular Accident Status:Active Comment s:Negative Family History Of. Coronary Artery Disease Status:Active Comments :Paternal Grandfather. Diabetes Mellitus Type II Status:Active Commen ts:Negative Family History Of. Hypertension Status:Active Comments:Father. Cancer Status:Active Comments:Prostat e-Father Cerebrovascular Accident Status:Active Comment s:Negative Family History Of. Coronary Artery Disease Status:Active Comments :Paternal Grandfather. Diabetes Mellitus Type II Status:Active Commen ts:Negative Family History Of. Hypertension Status:Active Comments:Father. Cancer Status:Active Comments:Prostat e-Father Cerebrovascular Accident Status:Active Comment s:Negative Family History Of. Coronary Artery Disease Status:Active Comments :Paternal Grandfather. Diabetes Mellitus Type II Status:Active Commen ts:Negative Family History Of. Hypertension Status:Active Comments:Father. Cancer Status:Active Comments:Prostat e-Father Cerebrovascular Accident Status:Active Comment s:Negative Family History Of. Coronary Artery Disease Status:Active Comments :Paternal Grandfather. Diabetes Mellitus Type II Status:Active Commen ts:Negative Family History Of. Hypertension Status:Active Comments:Father. Cancer Status:Active Comments:Prostat e-Father Cerebrovascular Accident Status:Active Comment s:Negative Family History Of. Coronary Artery Disease Status:Active Comments :Paternal Grandfather. Diabetes Mellitus Type II Status:Active Commen ts:Negative Family History Of. Hypertension Status:Active Comments:Father. Cancer Status:Active Comments:Prostat e-Father Cerebrovascular Accident Status:Active Comment s:Negative Family History Of. Coronary Artery Disease Status:Active Comments :Paternal Grandfather. Diabetes Mellitus Type II Status:Active Commen ts:Negative Family History Of. Hypertension Status:Active Comments:Father. Cancer Status:Active Comments:Prostat e-Father Cerebrovascular Accident Status:Active Comment s:Negative Family History Of. Coronary Artery Disease Status:Active Comments :Paternal Grandfather. Diabetes Mellitus Type II Status:Active Commen ts:Negative Family History Of. Hypertension Status:Active Comments:Father. Cancer Status:Active Comments:Prostat e-Father Cerebrovascular Accident Status:Active Comment s:Negative Family History Of. Coronary Artery Disease Status:Active Comments :Paternal Grandfather. Diabetes Mellitus Type II Status:Active Commen ts:Negative Family History Of. Hypertension Status:Active Comments:Father. Cancer Status:Active Comments:Prostat e-Father Cerebrovascular Accident Status:Active Comment s:Negative Family History Of. Coronary Artery Disease Status:Active Comments :Paternal Grandfather. Diabetes Mellitus Type II Status:Active Commen ts:Negative Family History Of. Hypertension Status:Active Comments:Father. Cancer Status:Active Comments:Prostat e-Father Cerebrovascular Accident Status:Active Comment s:Negative Family History Of. Coronary Artery Disease Status:Active Comments :Paternal Grandfather. Diabetes Mellitus Type II Status:Active Commen ts:Negative Family History Of. Hypertension Status:Active Comments:Father. Cancer Status:Active Comments:Prostat e-Father Cerebrovascular Accident Status:Active Comment s:Negative Family History Of. Coronary Artery Disease Status:Active Comments :Paternal Grandfather. Diabetes Mellitus Type II Status:Active Commen ts:Negative Family History Of. Hypertension Status:Active Comments:Father. Cancer Status:Active Comments:Prostat e-Father Cerebrovascular Accident Status:Active Comment s:Negative Family History Of. Coronary Artery Disease Status:Active Comments :Paternal Grandfather. Diabetes Mellitus Type II Status:Active Commen ts:Negative Family History Of. Hypertension Status:Active Comments:Father. Cancer Status:Active Comments:Prostat e-Father Cerebrovascular Accident Status:Active Comment s:Negative Family History Of. Coronary Artery Disease Status:Active Comments :Paternal Grandfather. Diabetes Mellitus Type II Status:Active Commen ts:Negative Family History Of. Hypertension Status:Active Comments:Father. Cancer Status:Active Comments:Prostat e-Father Cerebrovascular Accident Status:Active Comment s:Negative Family History Of. Coronary Artery Disease Status:Active Comments :Paternal Grandfather. Diabetes Mellitus Type II Status:Active Commen ts:Negative Family History Of. Hypertension Status:Active Comments:Father. Cancer Status:Active Comments:Prostat e-Father Cerebrovascular Accident Status:Active Comment s:Negative Family History Of. Coronary Artery Disease Status:Active Comments :Paternal Grandfather. Diabetes Mellitus Type II Status:Active Commen ts:Negative Family History Of. Hypertension Status:Active Comments:Father. Cancer Status:Active Comments:Prostat e-Father Cerebrovascular Accident Status:Active Comment s:Negative Family History Of. Coronary Artery Disease Status:Active Comments :Paternal Grandfather. Diabetes Mellitus Type II Status:Active Commen ts:Negative Family History Of. Hypertension Status:Active Comments:Father. Cancer Status:Active Comments:Prostat e-Father Cerebrovascular Accident Status:Active Comment s:Negative Family History Of. Coronary Artery Disease Status:Active Comments :Paternal Grandfather. Diabetes Mellitus Type II Status:Active Commen ts:Negative Family History Of. Hypertension Status:Active Comments:Father. Cancer Status:Active Comments:Prostat e-Father Cerebrovascular Accident Status:Active Comment s:Negative Family History Of. Coronary Artery Disease Status:Active Comments :Paternal Grandfather. Diabetes Mellitus Type II Status:Active Commen ts:Negative Family History Of. Hypertension Status:Active Comments:Father. Cancer Status:Active Comments:Prostat e-Father Cerebrovascular Accident Status:Active Comment s:Negative Family History Of. Coronary Artery Disease Status:Active Comments :Paternal Grandfather. Diabetes Mellitus Type II Status:Active Commen ts:Negative Family History Of. Hypertension Status:Active Comments:Father. Summary Purpose Advance Directives No Advanced Directives Records FoundNo Advanced Directives Records FoundNo Advanced Directives Records FoundNo Advanced Directives Records FoundNo Advanced Directives Records Found Additional Source Comments (unrecognized sect ion and content) No Status Records FoundNo Status Records FoundNo Status Records FoundNo Status Records FoundNo Status Records Found INFORMATION SOURCE (unrecogn ized section and content) DATE CREATED AUTHOR 04/20/2023 [facility] ([place]) DATE CREATED AUTHOR AUTHOR'S ORGANIZ ATION 03/29/2024 [facility] DATE CREATED AUTHOR AUTHOR'S ORGANIZ ATION 08/03/2024 [facility] DATE CREATED AUTHOR AUTHOR'S ORGANIZ ATION 11/01/2024 [facility] DATE CREATED AUTHOR AUTHOR'S ORGANIZ ATION 11/13/2024 [facility] Patient Care team informatio n (unrecognized section and content) Care Team Personnel Name: PARISH PIEDRA MD Member Role: Primary Care Physician Address: [address] [place] [address] [address] MADY DE [place] [id number] Telecom: Care Team Related Persons Name: CHUCK JUAREZ Care Team Personnel Name: PARISH PIEDRA MD Member Role: Primary Care Physician Address: [address] [place] [address] DR MADY DE [place] [id number] Telecom: Care Team Related Persons Name: CHUCK JUAREZ Care Team Personnel Name: PARISH PIEDRA MD Member Role: Primary Care Physician Address: [address] [place] [address] [address] MADY DE [place] [address] Telecom: Care Team Related Persons Name: CHUCK JUAREZ Care Team Personnel Name: PARISH PIEDRA MD Member Role: Primary Care Physician Address: [address] [place] [address] DR MADY DE [place] [phone] Telecom: Care Team Related Persons Name: CHUCK JUAREZ FOR RECORDS PERTAINING TO PATIENTS WHO ARE OR HAVE BEEN ENROLLED IN A CHEMICAL DEPENDENCY/SUBSTANCEABUSE PROGRAM, SOME INFORMATION MAY BE OMITTED. This clinical summary was aggregated from multiple sources. Caution should be exercised in using it in the provision of clinical care. This summary normalizes information from multiple sources, and as a consequence, information in this document may materially change the coding, format and clinical context of patient data. In addition, data may be omitted in some cases. CLINICAL DECISIONS SHOULD BE BASED ON THE PRIMARY CLINICAL RECORDS. [employer] provides no warranty or guarantee of the accuracy or completeness of information in this document.
[2025-03-12] MEDS: Lactated Ringers 1,000 ML 15 ML IV (09:05)
--- NOTE | 2025-03-12 10:45 | PROST_PTH ---
PATIENT: MANDEEP JUAREZ LOC: [facility] U#:[id number] AGE/SX: 64/M ROOM: RE03/12/[address]: Dr. Ashwin Mccormick MD : 1960 BED: DIS: 03/13/2025 SPEC #: [id number] RECD: 03/12/25 18:08 STATUS: MARIELENA REEdgardo #: [id number] ISHMAEL: 03/12/25 10:[address]: Ashwin Mccormick DEPT: SURGICAL PATHOLOGY RECD BY: Aj Washington ENTERED: 03/13/25 11:09 SP TYPE: PROSTATE OTHR DR: Dr. Jerrell Piedra MD Tissues: A - Prostate, NOS Procedures: Immunohistochemical Stains Surgery Specimen Level V IHC Stain ADDITIONAL HEADER OPERATION: Lap Robotic simple prostatectomy PRE-OP DIAGNOSIS: BPH TISSUE SUBMITTED: A. Prostate MICROSCOPIC DIAGNOSIS A. 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 - PIN4 IHC supports the histologic impression. MICROSCOPIC DESCRIPTION Slides are reviewed. All matched controls reacted appropriately. These tests were developed and their performance characteristics determined by [facility]. They may not have been cleared or approved by the U.S. Food and Drug Administration. The FDA has determined that such clearance or approval is not necessary. The above immunohistochemical markers and/or special?stains have been reviewed by the Pathologist. GROSS DESCRIPTION A. Received in formalin labeled with the patient's name and date of . Designated as prostate is an 8.9 g, 5.9 x 2.4 x 1.7 cm aggregate of yeung-a pink to red, rubbery and nodular tissue fragments. Entirely submitted in 9 cassettes. RI 03/13/2025 CPT:65965
--- NOTE | 2025-03-12 11:03 | PCM.PRE.AN2 ---
ASA Classification* ASA Classification ASA Classification: 2 Assessment & Plan Anesthesia* Anesthesia Assessment Anesthesia Assessment: Discussed sedation and/or anesthesia options, risks, benefits, and alternatives with patient/parents/legal guardian/POA. Questions invited. The patient/parents/legal guardian/POA seems to understand and agrees to proceed with anesthesia plan. Reviewed the physical assessment, medical history, allergy history and patient home medications list prior to surgery/procedure/anesthetic and documented any changes. Performed airway and anesthesia risk assessments. Anesthesia Type Anesthesia Type: General History Source History Obtained from:: Patient and Chart Anesthesia Focused Assessment* Temperature: 98.8 F Pulse Rate: 78 Blood Pressure: 125/90 Respiratory Rate: 16 Pulse Ox: 98 Oxygen Delivery Method: Room Air Airway Assessment Mouth opens: >3 cm Mallampati Score: I Teeth Condition: Partial (Partial upper and lower dentures. They are out.) Neck Range of motion (ROM): Full ROM Labs Anesthesia Preop lab: CBC WBC, (4.4-11.0) 11.4 K/mm3 H 03/03/25, 11:00 RBC, (4.6-6.2) 4.83 M/mm3 03/03/25, 11:00 Hgb, (13.0-16.5) 14.4 g/dL 03/03/25, 11:00 Hct, (40-54) 44.5 % 03/03/25, 11:00 Plt Count, (150-450) 312 K/mm3 03/03/25, 11:00 CHEMISTRY TSH, (0.300-4.200) 0.604 uIU/mL Today, 09:00 COAG Pre-Assessment Diagnosis/Proposed Procedure Planned Operative Procedure(s): LAP ROBOTIC SIMPLE PROSTATECTOMY Anesthesia History Anesthesia History - community service director: Anesthesia History - community service director Hx Hospitalization No 03/07/25 13:19 Any Problems With Anesthesia No 03/07/25 13:19 Cholinesterase deficiency No 03/07/25 13:19 You/Your Family Experience No 03/07/25 13:19 fever (hyperthermia) with Relationship Recent Exposure to Contagious No 03/12/25 09:01 Disease Does patient have nerve No 03/07/25 13:19 stimulator Patient instructed to have device shut off --Does patient have Pacemaker No 03/12/25 09:01 or ICD? When Was Last Pacemaker Check QUESTION #4 FULL TEXT: You/Your Family Experience fever (hyperthermia) with Anesthesia Last Oral Intake Last Oral intake: Last Oral Intake NPO since 21:00 03/12/25 09:01 Meds taken in AM with sips of No 03/12/25 09:01 water? Meds patient instructed to take am of surgery PONV PONV - community service director: PONV - community service director Female No 03/07/25 13:19 HX of Motion Sickness No 03/07/25 13:19 HX of N/V After Surgery No 03/07/25 13:19 Non-Smoker Yes 03/07/25 13:19 Duration of Surgery greater Yes 03/07/25 13:19 than 60 minutes Number of Risk Factors 2 03/07/25 13:19 PONV Score Moderate Risk 03/07/25 13:19 Height & Weight Height & Weight: Anesthesia: Height & Weight Height 5 ft 9 in 03/12/25 09:01 Weight: 72 kg 03/12/25 09:01 Body Mass Index (BMI) 23.4 03/12/25 09:01 Respiratory Assessment Respiratory Assessment - community service director: Respiratory Tract Infection Hx - community service director Hx Respiratory Tract Infection No 03/07/25 13:19 STOP Sleep Apnea STOP Sleep Apnea - community service director: STOP Sleep Apnea - community service director Hx Hypertension No 03/07/25 13:19 Hx Sleep Apnea No 03/07/25 13:19 CPAP BIPAP Do you snore loudly (louder Yes 03/07/25 13:19 than talking or can be heard Do you often feel tired/ No 03/07/25 13:19 fatigued/ sleepy during daytime? Has anyone observed you stop No 03/07/25 13:19 breathing during sleep? STOP Results Negative 03/07/25 13:19 QUESTION #5 FULL TEXT : Do you snore loudly (louder than talking or can be heard through closed doors)? Tobacco Use History Tobacco Use History - community service director: Tobacco Use History - community service director Tobacco Use Smoking Status Never smoker 03/07/25 13:19 Hx Tobacco Use No 03/07/25 13:19 Years Smoking Packs Smoked per Day Smoking Cessation Date was within the last 15 years Hx Smoking Cessation Date Hx Smoking Cessation Counseling Hematologic Medial History Hematologic Hx - community service director: Hematologic Medical Hx - executive secretary Hx of Blood Transfusion No 03/07/25 13:19 Hx of Transfusion in last 3 No 03/07/25 13:19 Months Date of Last Transfusion (if within last 3 months) Ever experience any problems No 03/07/25 13:19 with transfusion(s)? Specify any problems Hx of Preganancy in last 3 N/A 03/07/25 13:19 Months Nurse Filling Out Transfusion DSCHRIBER 03/07/25 13:19 & Questions: Date: 03/07/25 03/07/25 13:19 Time: 13:21 03/07/25 13:19 Patient unable to answer at this time (ie. confused, unrespo /Reproduction History /Reproductive History - community service director: /Reproductive Hx- community service director Hx Now No 03/07/25 13:19 Gestational Age (in weeks): EDC: Hx Hx Para Hx Section SAB No 03/07/25 13:19 Does the father of the baby or his family experience fever w Father of the baby Malignant Hypertension history comment Active Medications Active Medications: Current Medications Generic Name Dose Route Start Last Admin Trade Name Freq PRN Reason Stop Dose Admin Lactated Ringer's 1,000 mls @ 15 mls/hr 03/12/25 08:45 03/12/25 09:05 IV 15 mls/hr .Q48H MARTHA Administration PFSH Medical History Loss of hearing Wears glasses Wears partial dentures Thyroid disease Prostate disease High cholesterol Injury of back Migraine headache History of diverticulitis Heartburn Non-smoker Leg cramps History of stress test Home Medications ?Medication ?Instructions ?Recorded ?Last Taken ?Type PROSTA HIGH POWER 3 cap PO DAILY 03/07/25 03/07/25 History levothyroxine 50 mcg tablet 50 mcg PO DAILY 03/07/25 03/11/25 History magnesium 100 mg tablet 150 mg PO DAILY 03/07/25 03/07/25 History omega 5-ffp-yfd-fish oil 1,200 mg 1 cap PO DAILY 03/07/25 03/07/25 History (144 mg-216 mg) capsule (Fish Oil) Allergy/AdvReac Type Severity Reaction Status Date / Time No Known Allergies Allergy Verified 03/12/25 08:47 Surgical History Hx of colonoscopy Hx of right inguinal hernia repair Hx laparoscopic cholecystectomy Social History Smoking Status: Never smoker Review of Systems (Anesthesia) ROS Narrative System reviewed and no additional complaints, except as documented.
[2025-03-12] MEDS: fentaNYL 100 MCG/2 ML Ampul IV (12:41)
[2025-03-12] MEDS: Cefazolin 1 GM/5 ML Vial 2 GM IV (12:42)
[2025-03-12] MEDS: dexMEDEtomidine 200 MCG/2 ML ML IV (13:10)
[2025-03-12] MEDS: Lidocaine 1% (5 ml sdv) 5 ML Vial 15 ML IV (14:24)
--- NOTE | 2025-03-12 14:30 | DCINST_ITS ---
Discharge Instructions DC O2, CPAP, BIPAP needs Home O2 Discharge instructions: No Dressing / Incision Discharge Activity: Return to Normal Activity and May Not Drive (while taking narcotic pain medications.) Dressing / Incision Call your doctor if you observe: Fever of 101 or Higher Cleanse incision/area with: Soap & Water and Keep Dressing Clean & Dry Catheter: Stubbs to leg bag and Stubbs to large bag Drain: [place] Follow Up Care Please Follow Up With: Ashwin Mccormick MD When: Call [phone] for an appointment Test Results: Test results from this visit will be discussed in further detail at your follow- up appointment, if applicable. Discharge Plan Admission Primary Reason for Your Visit: simple prostatectomy Attending Provider: Ashwin Mccormick Primary Care Provider: Jerrell Piedra Instructions Print Language: Guatemalan Discharge Orders/Prescriptions Prescriptions: New ciprofloxacin HCl [Cipro] 500 mg tablet 500 mg PO BID Qty: 14 0RF oxycodone 5 mg tablet 5 mg PO Q6H PRN (Reason: pain) 7 Days Qty: 14 0RF docusate sodium [Colace] 100 mg capsule 100 mg PO BID Qty: 20 0RF Continued levothyroxine 50 mcg tablet 50 mcg PO DAILY omega 5-ryz-epq-fish oil [Fish Oil] 1,200 (144-216) mg capsule 1 cap PO DAILY magnesium 100 mg tablet 150 mg PO DAILY PROSTA HIGH POWER 3 cap PO DAILY Referrals / Follow Up: Ashwin Mccormick MD [Med Staff - Active Staff, Urology] Jerrell Piedra MD [Primary Care Provider, Medical] Disposition Disposition (needs filled in before D/C Order can be placed): Home, Self Care
--- NOTE | 2025-03-12 14:35 | OP.PCM_ITS ---
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 Post-Operative Diagnosis: The same Surgery/Procedure Performed: Laparoscopic robotic assisted simple prostatectomy core assembly supervisor: Yes Materials Handling Equipment Operator: Addison Turner Tasks completed by project construction assistant manager: Opening, Closing, Opening & closing, Removing tissue, Insert Trochanter, Trocar and Retracting Type of Anesthesia: General RN Documented Start/Stop Times: Operation Date: 03/12/25 10:45 Case Time Into Pre-Op 03/12/25 08:38 Out of Pre-Op 03/12/25 12:30 Anesthesia Start 03/12/25 12:33 Into Room 03/12/25 12:33 Procedure Start 03/12/25 13:03 Procedure Start Time: 12:33 Procedure Stop Time: 14:35 Select all DRAINS/GRAFTS/IMPLANTS that apply: Drains Drain details: 22 Tunisian three-way Stubbs Estimated Blood Loss: 50 cc Specimen collected: Yes Description of specimen(s) removed: Prostate adenoma Description of surgery: Indication this is a 64-year-old male who has been having difficulty with BPH and obstruction for a long time finding presented to my office for an evaluation he had gone to the emergency room was not able to urinate and had a Stubbs catheter placed on evaluation he was found to have a large obstructive prostate we discussed options of management including medical management surgical management and different surgical options he wishes to proceed with prostate surgery to alleviate obstruction renal proceed with simple prostatectomy he understands no guarantees of surgery will work the always possible he may have to learn intermittent catheterization afterwards or have to have chronic catheter afterwards and we talked about the risk of surgery including bleeding infection injury to critical structures and bladder control problems afterwards. After reviewing everything with the patient signed the consent form organ to proceed with a simple prostatectomy laparoscopically robotic approach Patient was taken back to the operating room after smooth induction of anesthesia he was placed supine on the table the Stubbs catheter was removed that he had an at the present time he was placed in dorsolithotomy position with the other pressure points padded penis and testicles and lower abdomen were prepped and draped in usual sterile fashion I then placed a 16 Tunisian catheter into the bladder with 10 cc in the balloon. I then infiltrated the skin above the umbilicus with 10 cc of Marcaine made an incision above the umbilicus used a hemostat to probe down to the fascia and then used a Veress needle to advance the needle into the peritoneal cavity once the needle was in the peritoneal cavity we did the drop test and then we insufflated the peritoneal cavity with CO2 gas and the proper distention was obtained we then placed our 8 mm robotic trocar through the incision into the peritoneum into the abdominal cavity and looked in with a 0 degree lens upon entry there was no injury or the no identification of any injury or problems within the abdomen the abdomen looked normal after inspection then we placed a port on the right side infiltrated the skin with the lidocaine and then advance the needle into to find our site for a port made incision in the skin and then a robotic port was placed in the right side then we went to the left side again found the spot for the left port infiltrated the skin with lidocaine advance needle into peritoneal cavity and then it made an incision in the skin and then placed our left port we then put in our AirSeal port of the 1012 AirSeal port in the upper right quadrant made it used a needle to find her spot and infiltrated the skin with Marcaine lidocaine and then made an incision in the skin and then placed 1012 mm port in the right upper quadrant once a port was placed then the patient was placed in steep Trendelenburg we then came over with the robot and we docked the robot to the ports we put a camera in the midline right arm scissors left arm ProGrasp and then the rehab assistant used the 1012 suction port to pass instruments into the and to suction. And inspection of the abdomen there was a significant adhesions of the sigmoid colon up against the lateral wall in order to get to the bladder this was taken down sharply and very carefully after taking down the adhesions of the sigmoid colon off the lateral wall then it retracted out of the pelvis and I could see the bladder we then filled the bladder up with 350 cc of normal saline and then once the bladder was nicely distended then in the midline of the bladder dissected through the peritoneum serosal fat and through the muscle layers of the bladder until we got to the mucosal layer and then opened up the bladder in the midline all the fluid was then suctioned out of the bladder we then tacked the bladder edges up using the Danis needles first needle was put in laterally lateral to the inferior epigastric vessels and then put in through the lateral wall of the bladder and retracted laterally on the patient's right side and then we went to the left side came into the left lower abdomen with the Danis needle lateral to the inferior epigastric arteries and then passed the Danis needle through the lateral wall of the bladder then the bladder edges were then tacked open to allow retraction of the bladder and then we came into the bladder with the scissors ProGrasp and the rehab assistant was using the suction to help with suction suck blood identified the bladder there were no tumors or stones within the bladder the trigone was identified the left and right ureteral orifice were identified we then able identify the bladder neck the balloon was we deflated the balloon but left a catheter in place I then circumferentially scored the mucosa over the large adenoma all the way around the catheter we then dissected through the muscle to get down to the prostatic adenoma we then created the plane surgical plane between the prostatic adenoma and the prostate once we identified that pseudo plane between the prostate adenoma and the prostate we went inferiorly fark first this is rehab assistant with retract lower and I would use the progress but retract up on the adenoma and dissected down below the adenoma as far as possible until we got to the sphincter complex inferiorly I then worked my way laterally the patient's right side on the adenoma using electrocautery on the muscle fibers attached to the adenoma and then freeing the adenoma from the pseudocapsule all the way into it I got to the anterior commissure it and then we came through the muscle fibers of the anterior commissure to release the adenoma from the anterior part of the prostate I then went back down below the adenoma and then worked my way up on the other side freeing up the prostate adenoma from the pseudocapsule from the prostate working away laterally and then finally freeing up the muscle attachments to the adenoma all the way anteriorly until we got to the anterior commissioner it and then we came through the anterior commissure it with electrocautery then I was able to pull on the adenoma down towards me I worked our way down to the catheter we then identified the Stubbs catheter and the extension of the adenoma onto the prostatic strip and then the prostatic strip was identified and carefully transected this was proximal to the sphincter and the verumontanum and then the left adenoma was was removed and then the right adenoma was removed we then inspected the cavity cauterized obtain hemostasis Floseal was then prepared the rehab assistant brought in the Floseal through a port and injected Floseal into the prostatic cavity we allowed this to sit there for about 5 minutes to help with hemostasis and then all the Floseal was suctioned out I did not see any excessive bleeding from the prostatic cavity then we started with the reconstruction of the bladder to the urethra aligning up the bladder to the urethra we used 3 oh V-Loc stitches started at the 6 o'clock position on the bladder neck and then follow the catheter in and out going outside in the Stubbs and outside and then the urethra and inside out on the bladder edge and working away from the 6:00 to the 9:00 and finally to the 12 o'clock position on the bladder to realign the urethra and to the bladder edges and then we did a second V-Loc stitch again on the other side to realign the bladder edges to the urethra following the mucosa making sure the mucosa approximated down to the urethral edges to prevent any gaps so that that and then we tested the Stubbs catheter we nt into the bladder without any gaps and there was no obstruction of the Stubbs catheter we then after finishing up the anastomosis and the realignment of the bladder neck to the urethra then that Stubbs catheter was put in to be then lubricated a 22 Tunisian continuous catheter was able to get that through the penis into the past the urethra new anastomosis into the bladder we put 30 cc in the balloon and then at this point then we let go the retraction of the edges of the bladder and then we closed the bladder up using 2 oh V-Loc stitch we started at the 6 o'clock position and slowly worked our way closing the bladder all the way up to the top once this was closed then the blower bladder edges the Danis needles were released completely and then we closed the second layer of the bladder using a 0 Vicryl stitch and then we ran a second layer to close this and the second layer of the bladder and the peritoneum and then we tied the 2 stitches together on the top of the bladder we buried the knot and then we cut the ends of the stitches off but the needles of them were extracted the robot was then we inspected that we irrigated there is no signs of injury all the sponges needles were accounted for we then removed all the instruments out of the abdomen we undocked the robot I then extracted the prostate adenoma through the AirSeal port site and then we removed all the ports and then I did close the umbilical port I put a single 0 Vicryl stitch to reapproximate the fascia and the umbilical port but the other ports on the right port and the left 8 mm port I did not put a stitch and then I did reapproximate the fascia on the 1012 port in the right upper quadrant with a single 0 Vicryl stitch after the fascia was closed then we closed all the incisions with subcuticular stitches I irrigate out the bladder till clear and then we started continuous bladder irrigation patient anesthetic was reversed he is taken back to the PACU in stable condition blood loss is minimal only 50 cc of the sponges and needles were accounted for and Addison miles was the assistant plant manager during the entire case patient anesthetic was reversed he is activated and taken back to the PACU in stable condition Surgical Findings: Prostate adenoma enucleated completely Complications Complications: No Admit VTE Documentation VTE Present on Admission: No VTE Mechan Device Prophylaxis: SCD's VTE Pharm Prophylaxis ordered?: No
--- NOTE | 2025-03-12 14:49 | PCM.POST.ANE ---
Anesthesia: Postop Eval I Current Vital Signs Temperature: 97.4 F Pulse Rate: 78 Blood Pressure: 160/98 Respiratory Rate: 20 Pulse Ox: 94 Oxygen Delivery Method: Room Air Assessment Airway patent: Yes Spontaneous unlabored respirations: Yes Mental status: Awake and Calm nausea: No Vomiting: No Anesthesia Complication: No Fluid Hydration Crystalloid volume administer (ml): 1,800 Total IV fluid infused: 1,800 Progress Note Anesthesia document: Postop Eval 1 completed: Yes
[2025-03-12] MEDS: 0.9% Normal Saline (1000mL) 1,000 ML 75 ML IV (16:47)
--- NOTE | 2025-03-12 22:14 | POSTOPAN2_ITS ---
Anesthesia Postop Eval I Sum Postop Eval Completion status Anesthesia document: Postop Eval 1 completed: Yes Anesthesia Postop Eval I Summary Anesthesia Postop Eval I Summary: Anesthesia Postop Eval I: Assessment Summary Airway patent Yes 03/12/25 14:50 DATA [email or web address] Spontaneous unlabored Yes 03/12/25 14:50 DATA [email or web address] respirations Mental status Awake,Calm 03/12/25 14:50 DATA [email or web address] nausea No 03/12/25 14:50 DATA [email or web address] Vomiting No 03/12/25 14:50 DATA [email or web address] Anesthesia Postop Eval I: Fluid Summary Crystalloid volume administer 1,800 03/12/25 14:50 DATA [email or web address] (ml) Colloids volume administered ( ml) Blood Product volume administered (ml) Total IV fluid infused 1,800 03/12/25 14:50 DATA [email or web address] Anesthesia Postop Eval I: Summary Notes Anesthesia Complication No 03/12/25 14:50 DATA [email or web address] Anesthesia Complication Comment: Post-operative progress note Anesthesia: Postop Eval II Evaluation Mental status: Awake and Calm Pain Level: 1 nausea: No Vomiting: No Complications Anesthesia Complication: No
--- NOTE | 2025-03-12 22:14 | PCM.POSTANE2 ---
Anesthesia Postop Eval I Sum Postop Eval Completion status Anesthesia document: Postop Eval 1 completed: Yes Anesthesia Postop Eval I Summary Anesthesia Postop Eval I Summary: Anesthesia Postop Eval I: Assessment Summary Airway patent Yes 03/12/25 14:50 [email or web address] Spontaneous unlabored Yes 03/12/25 14:50 [email or web address] respirations Mental status Awake,Calm 03/12/25 14:50 [email or web address] nausea No 03/12/25 14:50 [email or web address] Vomiting No 03/12/25 14:50 [email or web address] Anesthesia Postop Eval I: Fluid Summary Crystalloid volume administer 1,800 03/12/25 14:50 [email or web address] (ml) Colloids volume administered ( ml) Blood Product volume administered (ml) Total IV fluid infused 1,800 03/12/25 14:50 [email or web address] Anesthesia Postop Eval I: Summary Notes Anesthesia Complication No 03/12/25 14:50 [email or web address] Anesthesia Complication Comment: Post-operative progress note Anesthesia: Postop Eval II Evaluation Mental status: Awake and Calm Pain Level: 1 nausea: No Vomiting: No Complications Anesthesia Complication: No
[2025-03-13 03:00] VITALS: BP 101/61; PULSE 64; RESP 15; TEMP 37.2; O2SAT 96
[2025-03-13 05:55] LABS: Hematocrit 40.6 % (40-54); Hemoglobin 13.9 g/dL (13.0-16.5); Immature Granulocytes Count 0.080 X10^3/uL (0.0-0.0); Mean Corp Hgb Conc 34.2 g/dL (32-36); Mean Corpuscular Volume 89.2 fL (80-94); Mean Platelet Vol. 10.2 fl (6.2-12.0); NRBC Flagged by Analyzer 0 % (0-5); Platelet Count 272 K/mm3 (150-450); RBC Distribution Width CV 12.5 % (11.6-14.6); RBC Distribution Width SD 40.7 fl (35.1-43.9); Red Blood Count 4.55 M/mm3 (4.6-6.2); White Blood Count 14.6 K/mm3 (4.4-11.0)
[2025-03-13 06:47] LABS: Anion Gap 12 (5-15); BUN 13 mg/dL (4-19); BUN/Creat Ratio 14.8 RATIO (10-20); Calcium,Total 8.9 mg/dL (7.6-11.0); Carbon Dioxide 20.6 mmol/L (21.0-32.0); Chloride 101 mmol/L (98-108); Estimated Creatinine Clearance 83.82 ml/min (50-250); Glucose 172 mg/dL (70-99); Potassium 4.2 mmol/L (3.3-5.1)
--- NOTE | 2025-03-13 07:23 | PCM.PN.GU ---
Subjective Subjective 64-year-old male status post simple prostatectomy and go home with Stubbs catheter today follow-up next week for catheter removal Objective Data Objective Data Vital Signs: Vital Signs Temp Pulse Resp BP Pulse Ox O2 Del Method 98.9 F 64 15 101/61 96 Room Air 03/13/25 03:00 03/13/25 03:00 03/13/25 03:00 03/13/25 03:00 03/13/25 03:00 03/13/25 03:00 Oxygen Delivery Method Room Air Weight: 72 kg Body Mass Index (BMI) 23.5 Intake & Output: Intake and Output for Last 24 Hours 03/11/25 03/12/25 03/13/25 23:59 23:59 23:59 Intake Total 2200 / 2200 200 / 200 Output Total 450 / 450 700 / 700 Balance 1750 / 1750 -500 / -500 Lab / Micro Data 03/13/25 05:08 03/13/25 05:08 Labs: Laboratory Results - last 24 hr 03/12/25 09:00: TSH 0.604 03/13/25 05:08: WBC 14.6 H, RBC 4.55 L, Hgb 13.9, Hct 40.6, MCV 89.2, MCH 30.5, MCHC 34.2, RDW Std Deviation 40.7, RDW Coeff of Rossy 12.5, Plt Count 272, MPV 10.2, Immature Gran % (Auto) 0.500, Neut % (Auto) 89.0 H, Lymph % (Auto) 6.5 L, Garrett % (Auto) 3.9, Eos % (Auto) 0.0, Baso % (Auto) 0.1, Absolute Neuts (auto) 13.0 H, Absolute Lymphs (auto) 0.95, Nucleated RBC % 0, Sodium 134, Potassium 4.2, Chloride 101, Carbon Dioxide 20.6 L, Anion Gap 12, BUN 13, Creatinine 0.85, Estim Creat Clear Calc 83.82, Est GFR (MDRD) Non-Af 97, BUN/Creatinine Ratio 14.8, Glucose 172 H, Calcium 8.9
[2025-03-13 07:52] VITALS: BP 107/73; PULSE 67; RESP 15; TEMP 36.9; O2SAT 94
--- NOTE | 2025-03-13 09:20 | CASEMGMT ---
ARTURO THOMPSON NOTE: Discharge order is in. Pt to dc home w/ F/C. ARTURO CM to room. Pt resting in bed, @ bedside. Pt aware he is dc'ing home today w/ F/C & states he is comfortable w/this as he has had @ home for 3 weeks. He states his sister will be taking him home today. They were made aware Rx's have been sent to [facility] in [place] and states they can pick those up today. He denies having any discharge needs or concerns. Karely MEDELLINN RN CM
--- NOTE | 2025-03-13 11:53 | PHA.DC_ITS ---
Pharmacy [facility] has performed discharge medication counseling for this patient. The patient was counseled on the following discharge medications and changes in medications for homegoing review. - Ciprofloxacin 500 mg tablet, Docusate 100 mg tablet, Oxycodone 5 mg tablet The Reason for Use, instructions for use, and potential side effects were reviewed for all new medications. The patient's questions regarding all of their medications were answered. The patient was able to verbally demonstrate an understanding of their discharge medications. Medications at Discharge Home Medications PROSTA HIGH POWER 3 cap PO DAILY 03/07/25 levothyroxine 50 mcg tablet 50 mcg PO DAILY 03/07/25 magnesium 100 mg tablet 150 mg PO DAILY 03/07/25 omega 3-ewj-aol-fish oil 1,200 mg (144 mg-216 mg) capsule (Fish Oil) 1 cap PO DAILY 03/07/25 ciprofloxacin HCl 500 mg tablet (Cipro) 500 mg PO BID #14 tabs 03/12/25 docusate sodium 100 mg capsule (Colace) 100 mg PO BID #20 caps 03/12/25 oxycodone 5 mg tablet 5 mg PO Q6H PRN pain 7 days #14 tabs 03/12/25
== END 2025-03-13 12:16 | disposition home or self-care (01) ==
LOC: SDC 08:13 → AC 08:15 → MS3 17:47
PROVIDERS: Anesthesiology; PCP Family Medicine; Referring Provider Urology; Visit Provider Urology
PROC: 0VT04ZZ Resection of Prostate, Percutaneous Endoscopic Approach (ICD-10-PCS; CPT 55867; principal; 2025-03-12 10:25)
DX: C61 Malignant neoplasm of prostate (principal); N40.1 Benign prostatic hyperplasia with lower urinary tract symptoms; R33.8 Other retention of urine; N13.8 Other obstructive and reflux uropathy; E07.9 Disorder of thyroid, unspecified; E78.00 Pure hypercholesterolemia, unspecified; Z79.890 Hormone replacement therapy; Z79.899 Other long term (current) drug therapy
CPT/HCPCS: 55867; S2900; 00865; 36415; 80048; 84443; 85025; 88307; 88309; 88341; 88342; 94668; A4216; J0744; J2405